=== PATIENT | female | born 1955 | race Caucasian/White ===

== ENCOUNTER 2016-08-20 12:16 | Inpatient (IN) | payer MEDICARE, OTHER ==
[~2016-08-20] VITALS: Ht 157.5 cm; Wt 69.4 kg
[~2016-08-20 12:16] MED LIST: ALPR0.5T5; ASPI-630 PO; ASPI325T8; CARV12.52; CARV3.122 PO; CEFP100T; CRESTOR20 MG; CYCL10TA2 PO; GLYB1TAB14; HYDR12.53 PO; INSU100I13 SQ; Insulin Detemir SQ; LISI-338; MAGN400C; MELO15TA23; METF-620 PO; MONT10TA9; NITR0.4T SL; OMEP20CA9; OMEP40CA5 PO; TRAM50TA
[2016-08-20] MEDS ORDERED: IV NORMAL SALINE 500ML BAG 500 ML IV ONE ×2 (12:30→13:30)
[2016-08-20] MEDS ORDERED: ONDANSETRON PF 4 MG/2 ML VIAL. IV ONE (12:30)
--- NOTE | 2016-08-20 12:34 | PHYS DOC ---
Past Medical History Past Medical History: Arthritis, Diabetes-Type II, Hypertension, Other Additional Past Medical Histor: TACHYCARDIA Past Surgical History: Coronary Bypass Surgery, Hysterectomy, Other Additional Past Surgical Histo: CARDIAC STENT PLACEMENT X4, NECK FUSION, Alcohol Use: None Drug Use: None Adult General HPI HPI nding 60-year-old female with a history of stroke in 2014 with no residual deficit now presents to the emergency department with onset of speech changes and difficulty with word finding yesterday. Patient states her symptoms have improved today however she is still having some difficulty finding words. She has no other focal deficit otherwise and denies new weakness, any change with coordination, problems with gait, or visual changes. Patient states she does not feel ill and has no other complaints. No chest pain or shortness of breath normal bowel and bladder habits Review of Systems Review of Systems Constitutional: Denies fever or chills [] Eyes: Denies change in visual acuity, redness, or eye pain [] HENT: Denies nasal congestion or sore throat [] Respiratory: Denies cough or shortness of breath [] Cardiovascular: No additional information not addressed in HPI [] GI: Denies abdominal pain, nausea, vomiting, bloody stools or diarrhea [] : Denies dysuria or hematuria [] Musculoskeletal: Denies back pain or joint pain [] Integument: Denies rash or skin lesions [] Neurologic: Denies headache, focal weakness or sensory changes [] Endocrine: Denies polyuria or polydipsia [] Current Medications Current Medications Current Medications Medications (Trade) Dose Ordered Sig/Nga Start Time Stop Time Status Last Admin Dose Admin Acetaminophen/ Hydrocodone Bitart (Lortab 5/325) 1 tab 1X ONCE 08/20/16 13:30 08/20/16 13:31 UNV Ondansetron HCl (Zofran) 4 mg 1X ONCE 08/20/16 12:30 08/20/16 12:34 DC 08/20/16 12:34 4 MG Sodium Chloride 1,000 ml @ 120 mls/hr [id number] 08/20/16 12:42 08/21/16 12:41 Allergies Allergies Allergies Coded Allergies Type Severity Reaction Last Updated Verified paroxetine Allergy Intermediate SEIZURE 05/10/13 Yes meperidine Allergy Mild Anxiety 05/10/13 Yes morphine Allergy Mild Nausea and Vomiting 05/10/13 Yes I S O L A T I O N *CONTACT* Allergy Unknown 03/01/14 Yes Physical Exam Physical Exam Well-appearing 60-year-old female with no facial droop alert communicative cooperative and appropriate but having word finding difficulties consistent with a motor aphasia. Patient knows she wants to say but him times has trouble finding words and getting them out. Remainder of her neurologic exam is nonfocal. Normal symmetrical strength sensation and reflexes. No cranial nerve abnormality. Downgoing toes bilaterally. Exam otherwise benign Constitutional: Well developed, well nourished, no acute distress, non-toxic appearance. [] HENT: Normocephalic, atraumatic, bilateral external ears normal, oropharynx moist, no oral exudates, nose normal. [] Eyes: PERRLA, EOMI, conjunctiva normal, no discharge. [] Neck: Normal range of motion, no tenderness, supple, no stridor. [] Cardiovascular:Heart rate regular rhythm, no murmur [] Lungs & Thorax: Bilateral breath sounds clear to auscultation [] Abdomen: Bowel sounds normal, soft, no tenderness, no masses, no pulsatile masses. [] Skin: Warm, dry, no erythema, no rash. [] Back: No tenderness, no CVA tenderness. [] Extremities: No tenderness, no cyanosis, no clubbing, ROM intact, no edema. [] Neurologic: As above Alert and oriented X 3, normal motor function, normal sensory function, no focal deficits noted. [] Psychologic: Affect normal, judgement normal, mood normal. [] Current Patient Data Vital Signs Vital Signs Date Time Temp Pulse Resp B/P (MAP) Pulse Ox O2 Delivery O2 Flow Rate FiO2 08/20/16 13:06 91 20 194/91 (125) 97 Room Air 08/20/16 12:16 98.0 98.0 Lab Values Laboratory Tests Test 08/20/16 12:21 08/20/16 12:22 Glucose (Fingerstick) 221 mg/dL (70-99) H White Blood Count 12.4 x10^3/uL (4.0-11.0) H Red Blood Count 4.21 x10^6/uL (3.50-5.40) Hemoglobin 13.4 g/dL (12.0-15.5) Hematocrit 41.3 % (36.0-47.0) Mean Corpuscular Volume 98 fL (79-100) Mean Corpuscular Hemoglobin 32 pg (25-35) Mean Corpuscular Hemoglobin Concent 33 g/dL (31-37) Red Cell Distribution Width 12.9 % (11.5-14.5) Platelet Count 213 x10^3/uL (140-400) Neutrophils (%) (Auto) 81 % (31-73) H Lymphocytes (%) (Auto) 14 % (24-48) L Monocytes (%) (Auto) 4 % (0-9) Eosinophils (%) (Auto) 1 % (0-3) Basophils (%) (Auto) 1 % (0-3) Neutrophils # (Auto) 10.0 x10^3uL (1.8-7.7) H Lymphocytes # (Auto) 1.7 x10^3/uL (1.0-4.8) Monocytes # (Auto) 0.5 x10^3/uL (0.0-1.1) Eosinophils # (Auto) 0.1 x10^3/uL (0.0-0.7) Basophils # (Auto) 0.1 x10^3/uL (0.0-0.2) Sodium Level 142 mmol/L (136-145) Potassium Level 4.4 mmol/L (3.5-5.1) Chloride Level 102 mmol/L (98-107) Carbon Dioxide Level 30 mmol/L (21-32) Anion Gap 10 (6-14) Blood Urea Nitrogen 22 mg/dL (7-20) H Creatinine 1.0 mg/dL (0.6-1.0) Estimated GFR (Cockcroft-Gault) 56.6 BUN/Creatinine Ratio 22 (6-20) H Glucose Level 231 mg/dL (70-99) H Calcium Level 8.5 mg/dL (8.5-10.1) Total Bilirubin 0.9 mg/dL (0.2-1.0) Aspartate Amino Transferase (AST) 21 U/L (15-37) Alanine Aminotransferase (ALT) 20 U/L (14-59) Alkaline Phosphatase 84 U/L (46-116) Troponin I Quantitative < 0.017 ng/mL (0.000-0.055) Total Protein 7.1 g/dL (6.4-8.2) Albumin 3.7 g/dL (3.4-5.0) Albumin/Globulin Ratio 1.1 (1.0-1.7) Laboratory Tests 08/20/16 12:22 Laboratory Tests 08/20/16 12:22 EKG EKG AG normal sinus rhythm at 82 normal axis no STEMI operative by me [] Radiology/Procedures Radiology/Procedures [] Course & Med Decision Making Course & Med Decision Making Pertinent Labs and Imaging studies reviewed. (See chart for details) Signs and symptoms consistent with mild CVA with speech changes and motor A fascia onset yesterday in a patient with a known history of stroke. She is otherwise stable well appearing with a nonfocal neurologic exam aside from the affirmation speech deficit shows improved per patient but still persists. 4 workup pending. We'll anticipate inpatient admission for full neurologic workup with consultation to Dr. Allan. Results pending [] Dragon Disclaimer Dragon Disclaimer This electronic medical record was generated, in whole or in part, using a voice recognition dictation system. Departure Departure Impression: Primary Impression: Acute CVA (cerebrovascular accident) Additional Impressions: Motor aphasia Prerenal azotemia Disposition: ADMITTED INPATIENT Admitting Physician: Ramírez Andrews Condition: STABLE Referrals: RAMÍREZ ANDREWS MD (PCP) Problem Qualifiers BRISA RUTH MD Aug 20, 2016 12:34
[2016-08-20 12:44] LABS: BASO # 0.1 x10^3/uL (0.0-0.2); BASO % 1 % (0-3); EOS % 1 % (0-3); HEMATOCRIT 41.3 % (36.0-47.0); HEMOGLOBIN 13.4 g/dL (12.0-15.5); LYMPH # 1.7 x10^3/uL (1.0-4.8); LYMPH % 14 % (24-48); MEAN CORPUSCULAR HEMOGLOBIN 32 pg (25-35); MEAN CORPUSCULAR HGB CONC 33 g/dL (31-37); MEAN CORPUSCULAR VOLUME 98 fL (79-100); MONO % 4 % (0-9); NEUT % 81 % (31-73); PLATELET COUNT 213 x10^3/uL (140-400); RED BLOOD COUNT 4.21 x10^6/uL (3.50-5.40); RED CELL DISTRIBUTION WIDTH 12.9 % (11.5-14.5); WHITE BLOOD COUNT 12.4 x10^3/uL (4.0-11.0)
--- NOTE | 2016-08-20 12:47 | RAD ---
CT head 08/20/2016 at 1220 hours Indication: New onset aphasia Comparison: CT head 03/01/2014 Technique: Multiple noncontrast axial CT images of the head were performed from the skull base to the vertex. Findings: There is an area of hypoattenuation the left frontal operculum which is suggestive of encephalomalacia related to prior infarct. There is subtle loss of lee-white matter differentiation involving the left frontal lobe in this region which may suggest an acute/subacute on chronic infarct. Additionally, there is loss of lee-white matter differentiation in the left parietal lobe (series 2, image 19 and 21) compatible with an acute/subacute infarct. No acute hemorrhage is identified. A remote lacunar infarct is noted in the right basal ganglia. There is no mass, mass effect or midline shift. Ventricles, sulci and basal cisterns are normal. Visualized orbits, paranasal sinuses and mastoid air cells are normal. Scalp and calvaria are normal. Impression: 1. Acute/subacute infarct noted in the left parietal region. No acute hemorrhage. 2. Likely acute/subacute infarct superimposed on areas of remote ischemia in the left frontal operculum. Critical findings were discussed with Dr. Rahman at 12:45 PM on 08/20/[address] Buclkey. PQRS Compliance Statement: One or more of the following individualized dose reduction techniques were utilized for this examination: 1. Automated exposure control 2. Adjustment of the mA and/or kV according to patient size 3. Use of iterative reconstruction technique
[2016-08-20 12:54] LABS: CALCIUM 8.5 mg/dL (8.5-10.1); GFR 56.6; POTASSIUM 4.4 mmol/L (3.5-5.1)
[2016-08-20 13:00] LABS: ALBUMIN 3.7 g/dL (3.4-5.0); ALBUMIN/GLOBULIN RATIO 1.1 (1.0-1.7); TOTAL BILIRUBIN 0.9 mg/dL (0.2-1.0); TOTAL PROTEIN 7.1 g/dL (6.4-8.2)
--- NOTE | 2016-08-20 13:12 | RAD ---
Portable chest, 08/20/2016: History: Stroke symptoms Comparison is made to a study from 02/27/2014. There has been a previous median sternotomy. The heart size and pulmonary vascularity are normal. No pulmonary infiltrates are seen. There is no evidence of pleural fluid. IMPRESSION: No acute cardiopulmonary abnormality is detected.
--- NOTE | 2016-08-20 13:15 | EKG ---
[facility] [address] [place] [address] Test Date: 2016-08-20 Test Time: 12:35:42 Pat Name: FERDINAND GUPTA Department: Room: Gender: F Structural Worker: : 1955 Requested By: BRISA RUTH Order Number: [id number] Reading MD: Dee Graham Measurements Intervals [place] Rate: 82 P: -62 GA: 78 QRS: 72 QRSD: 82 T: 18 QT: 356 QTc: 419 Interpretive Statements SINUS RHYTHM NORMAL ECG RI6.01 Compared to ECG 02/28/2014 11:39:18 No significant changes Electronically Signed On 08-25-2016 14:57:04 CDT by Dee Graham
[2016-08-20] MEDS ORDERED: HYDROcodone/APAP 5/325MG 1 TAB TABLET PO ONE (13:30)
[2016-08-20 13:58] LABS: BILIRUBIN,URINE NEGATIVE (NEG); GLUCOSE,URINE NEGATIVE (NEG); NITRITE,URINE NEGATIVE (NEG); PROTEIN,URINE NEGATIVE (NEG-TRACE)
--- NOTE | 2016-08-20 13:58 | ACF ---
Admit Criteria Forms Admit Criteria Forms Admit Criteria Forms NEUROLOGY GRG Clinical Indications for Admission to Inpatient Care (Place ' X' for any and all applicable criteria): Hospital admission is needed for appropriate care of the patient because of 1 or more of the following: [ ]I. Encephalitis [ ]II. Severe MARKET DEVELOPMENT ANALYST infections indicated by 1 or more of the following(1)(2)(3) : [ ]a) Intracranial abscess [ ]b) Spinal abscess or myelitis [ ]c) Tuberculous or other nonbacterial, nonviral MARKET DEVELOPMENT ANALYST infection(8) [ ]III. Vasculitis and 1 or more of the following(14)(15): []a) Altered mental status that is severe or persistent or other acute neurologic change []b) Psychosis []c) Seizure [ ]IV. Status epilepticus or repetitive seizures not controlled with emergent treatment [A] (7)(8) [ ]V. Altered mental status that is severe or persistent [ ]. Transient alteration in consciousness with high-risk etiology; examples include (12)(13): [ ]a) Cardiovascular source [ ]b) Cataplexy [ ]VII. Cerebral aneurysm requiring ANY ONE of the following(14): [ ]a) IV antihypertensives or vasoactive agents [ ]b) Sedation and analgesia for suspected leak [ ]c) Need for external ventricular drainage and cerebral perfusion pressure monitoring [ ]d) Emergent evaluation to determine need for surgical clipping or endovascular coiling by interventional radiology. If surgery is required ( Also use Craniotomy, Supratentorial, for Surgery of Bleeding Intracranial Aneurysm (for bleeding aneurysm) or Craniotomy, Supratentorial (for nonbleeding aneurysm) as appropriate. [X ]VIII. New-onset severe neurologic symptom requiring inpatient care indicated by ANY ONE of the following: [X]a) Aphasia(15) [ ]b) Weakness (grade 3 or less) [ ]c) Paralysis (eg, hemiplegia) [ ]d) Spasticity(16) [ ]e) Dystonia [ ]e) Ataxia(17) [ ]f) Amnesia(18) [ ]g) Involuntary movements(19) [ ]h) Vertigo [ ] Visual loss [ ]i) Other severe neurologic finding (eg, papilledema, mass effect on imaging, myoclonus not treatable at alternative level of care (eg, observation care) [ ]IX. Guillain-[place] syndrome(20) [ ]X. Myasthenia gravis crisis or inpatient monitoring need as indicated by 1 or more of the following(21): [ ]a) Intensive treatment (eg, course of plasmapheresis) with inadequate outpatient situation to monitor patients status [ ]b) Inadequate airway protection [ ]c) Respiratory insufficiency requiring intubation or inpatient. monitoring [ ]d) Progressive dysphagia with failure to thrive [ ]XI. Multiple sclerosis or other acute demyelinating disease requiring inpatient care as indicated by 1 or more of the following (22)(23): [ ]a) Acute severe deterioration requiring inpatient treatment (eg, IV steroids, plasmapheresis, close observation) [ ]b) Acute complication requiring inpatient care (eg, sepsis, severe decubitus, aspiration) [ ]XII.Parkinson disease requiring inpatient care (Also use Optimal Recovery Care Criteria or General Recovery Criteria as appropriate) indicated by 1 or more of the following(25): [ ]a) Infection (eg, aspiration pneumonia) not treatable at alternative level of care [ ]b Dehydration that is severe or persistent [ ]c) Life-threatening agitation or psychotic behavior not treatable on emergency, observation care, or alternative level (eg, residential) basis [ ]d) Severe medication withdrawal effects (eg, freezing, neuroleptic malignant syndrome) not responsive to emergency and observation care treatment ( as appropriate) [ ]e) Other severe manifestation not treatable at alternative level of care [ ]XII. Amyotrophic lateral sclerosis with inpatient care needs as indicated by ANY ONE of the following(26): [ ]a) Acute complications (eg, aspiration pneumonia, sepsis ) requiring inpatient care ( see other optimal Recovery Guideline as appropriate) [ ]b) Dehydration that is severe persistent AND artificial support desired [ ]c) Inadequate airway protection AND artificial support desired [ ]d) Severe ventilatory insufficiency AND artificial support desired [ ]XIII. Myasthenia gravis crisis or inpatient monitoring need as indicated by 1 or more of the following(21): [] a) Inadequate airway protection []b) Respiratory insufficiency requiring intubation or inpatient monitoring []c) Progressive dysphagia with failure to thrive []d) Intensive treatment (e.g., course of plasmapheresis) with inadequate outpatient situation to monitor patients status [ ]XIV. Multiple sclerosis or other acute demyelinating disease requiring inpatient care indicated by 1 or more of the following[C](36)(43)(44)(45)(46): []a) Acute severe deterioration requiring inpatient treatment (eg, IV steroids, plasmapheresis, close observation) []b) Acute complication requiring inpatient care (eg, sepsis, severe decubitus, aspiration) [ ]XV. Intracranial hypertension (e.g., pseudotumor cerebri) requiring inpatient care (e.g., acute visual loss, inadequate oral intake) (47)(48)(49) [ ]XVI. Parkinson disease requiring inpatient care (Also use Optimal Recovery Care Criteria or General Recovery Criteria as appropriate) indicated by 1 or more of the following(25): [] a) Infection (e.g., aspiration pneumonia) not treatable at alternative level of care []b) Volume depletion not responsive to emergency and observation care treatment (as appropriate) []c) Life-threatening agitation or psychotic behavior not treatable on emergency, observation care, or alternative level (e.g., residential) basis []d) Severe medication withdrawal effects (e.g., freezing, neuroleptic malignant syndrome) not responsive to emergency and observation care treatment (as appropriate) []e) Other severe manifestation not treatable at alternative level of care [ ]XVII. Amyotrophic lateral sclerosis with inpatient care needs as indicated by1 or more of the following(42): []a) Acute complications (eg, aspiration pneumonia, sepsis) requiring inpatient care (see other Optimal Recovery Guideline or General Recovery Guideline as appropriate) []b) Dehydration that is severe or persistent AND artificial support desired []c) Inadequate airway protection AND artificial support desired []d) Severe ventilatory insufficiency AND artificial support desired [ ]XVIII. Severe myopathy, neuropathy, or other neuromuscular disease indicated by 1 or more of the following(42)(52)(53)(54): []a ) New-onset severe diffuse weakness (eg, strength 3/5 or less) []b) Severe dysphagia []c) Dyspnea at rest or with minimal exertion (new) []d) Inadequate airway protection []e) Inadequate ventilation indicated by 1 or more of the following : i) Partial pressure of carbon dioxide greater than 44 mm Hg ( 5.9 kPa) (new) ii) Reduced peak expiratory flow rate (new) iii) Vital capacity less than 50% of predicted (less than 15 mL/kg) iv) Peak inspiratory force less negative than -30 cm H2O (- 2942 Pa) [ ]XVII.Complications of congenital or degenerative disease (eg, infection, seizures, dehydration, injury) not responsive to emergency and observation care treatment (as appropriate ) [C](16)(29)(30) [ ]XVIII.Suspected or confirmed nerve or muscle toxic injury, including ANY ONE of the following: [ ]a) Rhabdomyolysis(31) i) Acute renal failure ii) Dehydration that is severe or persistent iii) Altered mental status that is severe or persistent iv) Electrolyte abnormality that remains after emergency or observation level care ( as appropriate) [ ]b) Botulism(32) [ ]c) Other severe toxin-induced sign or symptom [ ]XIX. Neurologic trauma requiring inpatient treatment (medical) indicated by ANY ONE of the following(33)(34): [ ]a) Vital signs or neurologic signs more frequently than every 4 hours [ ]b) Hyperosmolar therapy [ ]c) Respiratory monitoring [ ]d) Intracranial pressure monitoring and treatment [ ]e) Stabilization and immobilization device placement (eg, braces, body jacket) [ ]f) Intubation & mechanical ventilation for airway protection or therapeutic hyperventilation [ ]g) Other treatment or monitoring needed that requires inpatient level of care [ ]XX.Complications of neurologic devices (eg, ventricular shunt, neurostimulator) requiring 1 or more of the following(35)(36): [ ]a) IV antibiotics with monitoring while awaiting culture results [ ]b) Monitoring for hydrocephalus [ ]XXI. Neurology condition symptom, or finding for which emergency and observation care have failed or are not considered appropriate. See General Criteria: Observation Care ISC, General Admission Criteria GRG, or Pediatric General Admission Criteria GRG guideline as appropriate. The original [employer] content created by [employer] has been revised. The portions of the content which have been revised are identified through the use of italic text or in bold, and [facility] has neither reviewed nor approved the modified material. All other unmodified content is copyright [facility] [employer] Please see references footnoted in the original [facility] edition 2016 OBEY HOANG Aug 20, 2016 13:58
[2016-08-20] MEDS ORDERED: ASPIRIN CHEWABLE 81 MG TABLET. PO ONE (14:00)
[2016-08-20 14:07] LABS: BACTERIA,URINE MOD /HPF (0-FEW); RBC,URINE 0 /HPF (0-2); SQUAMOUS EPITHELIAL CELL,UR MANY /LPF; WBC,URINE 20-40 /HPF (0-4); YEAST,URINE PRESENT /HPF
[2016-08-20] MEDS: IV NORMAL SALINE 1000ML BAG 1,000 ML IV SCH ×3 (14:17→22:16)
[2016-08-20 15:30] VITALS: BP 142/89
[2016-08-20] MEDS ORDERED: ONDANSETRON PF 4 MG/2 ML VIAL. IV PRN (15:30)
[2016-08-20] MEDS ORDERED: TRAZ50TA15 PO (15:44)
[2016-08-20] MEDS ORDERED: ATOR40TA59 PO (15:44)
--- NOTE | 2016-08-20 15:55 | PDOC2 ---
NEUROLOGY CONSULT Date of Admission Date of Admission DATE: 08/20/16 TIME: 15:48 Reason for Consult Reason for Consult: Stroke symptoms Referring Physician Referring Physician: Dr. Andrews Source Source: Caregiver, Chart review, Patient History of Present Illness History of Present Illness The patient is a 60-year-old right-handed female who had some trouble speaking starting yesterday. Her mother tells me the patient called her up and sounded confused. The patient was complaining of a yeast infection. Indeed she has been found to have a urinary tract infection. 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 She had no residual. She has been on Plavix ever since. She is feeling better today. She never developed any new focal weakness, numbness, diplopia, or dysphagia. She denies any headache. Past Medical History Cardiovascular: CAD, HTN Pulmonary: Asthma, COPD, Pneumonia GI: GERD ENT: Sincusitis Past Surgical History Past Surgical History: CABG, , Hysterectomy, Other (cervical, residual right arm weakness; cardiac stent, cath; bronch; endoscopy) Family History Family History: CAD Social History Social History , nonsmoker, nondrinker Current Medications Current Medications Current Medications Sodium Chloride 500 ml @ 500 mls/hr 1X ONCE IV Last administered on 12:35; Start 08/20/16 at 12:30; Stop 08/20/16 at 13:29; Status DC Ondansetron HCl (Zofran) 4 mg 1X ONCE IV Last administered on 08/20/16 12:34 ; Start 08/20/16 at 12:30; Stop 08/20/16 at 12:34; Status DC Sodium Chloride 1,000 ml @ 120 mls/hr Q8H20M IV Last administered on 14:17; Start 08/20/16 at 12:42; Stop 08/21/16 at 12:41 Acetaminophen/ Hydrocodone Bitart (Lortab 5/325) 1 tab 1X ONCE PO Last administered on 08/20/16 13:31; Start 08/20/16 at 13:30; Stop 08/20/16 at 13:31 ; Status DC Sodium Chloride 500 ml @ 500 mls/hr 1X ONCE IV Last administered on 13:36; Start 08/20/16 at 13:30; Stop 08/20/16 at 14:29; Status DC Aspirin (Children'S Aspirin) 324 mg 1X ONCE PO Last administered on 08/20/16t 14:16; Start 08/20/16 at 14:00; Stop 08/20/16 at 14:03; Status DC Ondansetron HCl (Zofran) 4 mg PRN Q6HRS PRN IV NAUSEA/VOMITING; Start 08/20/16 at 15:30 Aspirin (Children'S Aspirin) 81 mg DAILY PO ; Start 08/21/16 at 09:00; Status UNV Atorvastatin Calcium (Lipitor) 40 mg HS PO ; Start 08/20/16 at 21:00; Status UNV Carvedilol (Coreg) 3.125 mg BID PO ; Start 08/20/16 at 21:00; Status UNV Hydrochlorothiazide (Microzide) 12.5 mg DAILY PO ; Start 08/21/16 at 09:00; Status UNV Metformin HCl (Glucophage) 1,000 mg BID PO ; Start 08/20/16 at 21:00; Status UNV Nitroglycerin (Nitrostat) 0.4 mg TID SL ; Start 08/20/16 at 21:00; Status UNV Trazodone HCl (Desyrel) 50 mg HS PO ; Start 08/20/16 at 21:00; Status UNV Non-Formulary Medication 25 units HS SQ ; Start 08/20/16 at 21:00; Status UNV Active Scripts Active [Insulin Detemir] 300 UNITS/3 ML Insuln.pen 25 Units SQ HS Reported Trazodone Hcl 50 Mg Tablet 50 Mg PO HS Atorvastatin Calcium 40 Mg Tablet 40 Mg PO HS Aspirin 81 Mg Tab.chew 1 Tab PO DAILY Carvedilol 3.125 Mg Tablet 1 Tab PO BID Nitrostat (Nitroglycerin) 0.4 Mg Tab.subl 1 Tab SL UD Hydrochlorothiazide Capsule (Hydrochlorothiazide) 12.5 Mg Capsule 1 Cap PO DAILY Metformin Hcl 1,000 Mg Tablet 1 Tab PO BID Tramadol Hcl 50 Mg Tablet BID Allergies Allergies: Coded Allergies: paroxetine (Verified Allergy, Intermediate, SEIZURE, 05/10/13) meperidine (Verified Allergy, Mild, Anxiety, 05/10/13) morphine (Verified Allergy, Mild, Nausea and Vomiting, 05/10/13) I S O L A T I O N *CONTACT* (Verified Allergy, Unknown, 03/01/14) mrsa + ROS Review of System Patient denies fevers, chills, weight loss, dyspnea, angina, abdominal pain, change in bowels, or dysuria. 14 point review of systems is negative. Physical Exam Physical Examination PHYSICAL EXAMINATION: Vital signs: see above. General appearance is normal and in no acute distress. HEENT: Normocephalic and nontraumatic. Eyes, nose, ears, and throat are unremarkable. Neck is supple. No lymphadenopathy. No bruits are heard over the carotid artery. No crepitus. NEUROLOGICAL EXAMINATION: Mental Status Examination: Alert. Oriented to time, place, and person. No aphasia. Answers questions and follows commends. Pupils are equal round and reactive to light and accommodation. Extraocular movements are intact. Visual field exam shows no defect on the direct confrontation. No motor or sensory deficits on the facial exam. Uvula in the midline and the soft palate elevated symmetrically. No deviation of the tongue to any direction. Gross hearing is normal. Shoulder shrug normal. Muscle tone is normal. Muscle strength is 5. Deep tendon reflexes are 2+ all around. Plantar reflex is with flexion response bilaterally. Ruymqi-ps-glja test performance is accurate. Tandem walk test is accurate. Alternative movements are accurate. Romberg test is negative. Gait is normal. Sensory exam shows no deficits. No cerebellar signs are elicited. Vitals VITALS Vital Signs Date Time Temp Pulse Resp B/P (MAP) Pulse Ox O2 Delivery O2 Flow Rate FiO2 08/20/16 15:30 97.8 86 18 142/89 (106) 96 Room Air 97.8 Labs Labs Laboratory Tests Test 08/20/16 12:21 08/20/16 12:22 08/20/16 13:45 Glucose (Fingerstick) 221 mg/dL (70-99) White Blood Count 12.4 x10^3/uL (4.0-11.0) Red Blood Count 4.21 x10^6/uL (3.50-5.40) Hemoglobin 13.4 g/dL (12.0-15.5) Hematocrit 41.3 % (36.0-47.0) Mean Corpuscular Volume 98 fL (79-100) Mean Corpuscular Hemoglobin 32 pg (25-35) Mean Corpuscular Hemoglobin Concent 33 g/dL (31-37) Red Cell Distribution Width 12.9 % (11.5-14.5) Platelet Count 213 x10^3/uL (140-400) Neutrophils (%) (Auto) 81 % (31-73) Lymphocytes (%) (Auto) 14 % (24-48) Monocytes (%) (Auto) 4 % (0-9) Eosinophils (%) (Auto) 1 % (0-3) Basophils (%) (Auto) 1 % (0-3) Neutrophils # (Auto) 10.0 x10^3uL (1.8-7.7) Lymphocytes # (Auto) 1.7 x10^3/uL (1.0-4.8) Monocytes # (Auto) 0.5 x10^3/uL (0.0-1.1) Eosinophils # (Auto) 0.1 x10^3/uL (0.0-0.7) Basophils # (Auto) 0.1 x10^3/uL (0.0-0.2) Sodium Level 142 mmol/L (136-145) Potassium Level 4.4 mmol/L (3.5-5.1) Chloride Level 102 mmol/L (98-107) Carbon Dioxide Level 30 mmol/L (21-32) Anion Gap 10 (6-14) Blood Urea Nitrogen 22 mg/dL (7-20) Creatinine 1.0 mg/dL (0.6-1.0) Estimated GFR (Cockcroft-Gault) 56.6 BUN/Creatinine Ratio 22 (6-20) Glucose Level 231 mg/dL (70-99) Calcium Level 8.5 mg/dL (8.5-10.1) Total Bilirubin 0.9 mg/dL (0.2-1.0) Aspartate Amino Transf (AST/SGOT) 21 U/L (15-37) Alanine Aminotransferase (ALT/SGPT) 20 U/L (14-59) Alkaline Phosphatase 84 U/L (46-116) Troponin I Quantitative < 0.017 ng/mL (0.000-0.055) Total Protein 7.1 g/dL (6.4-8.2) Albumin 3.7 g/dL (3.4-5.0) Albumin/Globulin Ratio 1.1 (1.0-1.7) Urine Collection Type Unknown Urine Color Yellow Urine Clarity Hazy Urine pH 6.0 Urine Specific [place] 1.020 Urine Protein Negative mg/dL (NEG-TRACE) Urine Glucose (UA) Negative mg/dL (NEG) Urine Ketones (Stick) Negative mg/dL (NEG) Urine Blood Negative (NEG) Urine Nitrite Negative (NEG) Urine Bilirubin Negative (NEG) Urine Urobilinogen Dipstick 1.0 mg/dL (0.2 mg/dL) Urine Leukocyte Esterase Large (NEG) Urine RBC 0 /HPF (0-2) Urine WBC 20-40 /HPF (0-4) Urine Squamous Epithelial Cells Many /LPF Urine Bacteria Mod /HPF (0-FEW) Urine Mucus Marked /LPF Urine Yeast Present /HPF Laboratory Tests Test 08/20/16 12:21 08/20/16 12:22 08/20/16 13:45 Glucose (Fingerstick) 221 mg/dL (70-99) White Blood Count 12.4 x10^3/uL (4.0-11.0) Red Blood Count 4.21 x10^6/uL (3.50-5.40) Hemoglobin 13.4 g/dL (12.0-15.5) Hematocrit 41.3 % (36.0-47.0) Mean Corpuscular Volume 98 fL (79-100) Mean Corpuscular Hemoglobin 32 pg (25-35) Mean Corpuscular Hemoglobin Concent 33 g/dL (31-37) Red Cell Distribution Width 12.9 % (11.5-14.5) Platelet Count 213 x10^3/uL (140-400) Neutrophils (%) (Auto) 81 % (31-73) Lymphocytes (%) (Auto) 14 % (24-48) Monocytes (%) (Auto) 4 % (0-9) Eosinophils (%) (Auto) 1 % (0-3) Basophils (%) (Auto) 1 % (0-3) Neutrophils # (Auto) 10.0 x10^3uL (1.8-7.7) Lymphocytes # (Auto) 1.7 x10^3/uL (1.0-4.8) Monocytes # (Auto) 0.5 x10^3/uL (0.0-1.1) Eosinophils # (Auto) 0.1 x10^3/uL (0.0-0.7) Basophils # (Auto) 0.1 x10^3/uL (0.0-0.2) Sodium Level 142 mmol/L (136-145) Potassium Level 4.4 mmol/L (3.5-5.1) Chloride Level 102 mmol/L (98-107) Carbon Dioxide Level 30 mmol/L (21-32) Anion Gap 10 (6-14) Blood Urea Nitrogen 22 mg/dL (7-20) Creatinine 1.0 mg/dL (0.6-1.0) Estimated GFR (Cockcroft-Gault) 56.6 BUN/Creatinine Ratio 22 (6-20) Glucose Level 231 mg/dL (70-99) Calcium Level 8.5 mg/dL (8.5-10.1) Total Bilirubin 0.9 mg/dL (0.2-1.0) Aspartate Amino Transf (AST/SGOT) 21 U/L (15-37) Alanine Aminotransferase (ALT/SGPT) 20 U/L (14-59) Alkaline Phosphatase 84 U/L (46-116) Troponin I Quantitative < 0.017 ng/mL (0.000-0.055) Total Protein 7.1 g/dL (6.4-8.2) Albumin 3.7 g/dL (3.4-5.0) Albumin/Globulin Ratio 1.1 (1.0-1.7) Urine Collection Type Unknown Urine Color Yellow Urine Clarity Hazy Urine pH 6.0 Urine Specific [place] 1.020 Urine Protein Negative mg/dL (NEG-TRACE) Urine Glucose (UA) Negative mg/dL (NEG) Urine Ketones (Stick) Negative mg/dL (NEG) Urine Blood Negative (NEG) Urine Nitrite Negative (NEG) Urine Bilirubin Negative (NEG) Urine Urobilinogen Dipstick 1.0 mg/dL (0.2 mg/dL) Urine Leukocyte Esterase Large (NEG) Urine RBC 0 /HPF (0-2) Urine WBC 20-40 /HPF (0-4) Urine Squamous Epithelial Cells Many /LPF Urine Bacteria Mod /HPF (0-FEW) Urine Mucus Marked /LPF Urine Yeast Present /HPF Images Images CT head: Findings: There is an area of hypoattenuation the left frontal operculum which is suggestive of encephalomalacia related to prior infarct. There is subtle loss of lee-white matter differentiation involving the left frontal lobe in this region which may suggest an acute/subacute on chronic infarct. Additionally, there is loss of lee-white matter differentiation in the left parietal lobe (series 2, image 19 and 21) compatible with an acute/subacute infarct. No acute hemorrhage is identified. A remote lacunar infarct is noted in the right basal ganglia. There is no mass, mass effect or midline shift. Ventricles, sulci and basal cisterns are normal. Visualized orbits, paranasal sinuses and mastoid air cells are normal. Scalp and calvaria are normal. Impression: 1. Acute/subacute infarct noted in the left parietal region. No acute hemorrhage. 2. Likely acute/subacute infarct superimposed on areas of remote ischemia in the left frontal operculum. Assessment/Plan Assessment/Plan Impression: Possible new stroke, but her bedside exam is nonfocal and I wonder if she just had some cognitive symptoms related to her urinary tract infection. Recommendations: Brain MRI Further studies depending on the results of the study. Continue Plavix Rehabilitation screening I discussed my findings with the patient and her mother. Thank you for letting me help with the patient's care. AUGUSTUS KRAFT MD Aug 20, 2016 15:55
[2016-08-20] MEDS ORDERED: ACETAMINOPHEN 325 MG TABLET. PO PRN (16:00)
[2016-08-20] MEDS ORDERED: ENOXAPARIN 40 MG/0.4 ML SYRINGE. SQ SCH (16:00)
[2016-08-20] MEDS: ASPIRIN CHEWABLE 81 MG TABLET. PO SCH (16:00)
[2016-08-20] MEDS ORDERED: ACETAMINOPHEN 650 MG SUPP.RECT. PR PRN (16:00)
[2016-08-20] MEDS ORDERED: LABETALOL 20 MG/4 ML DISP.SYRIN. IV PRN (16:00)
[2016-08-20] MEDS ORDERED: 0.9 % SODIUM CHLORIDE 10 ML DISP.SYRIN. IV PRN (16:00)
[2016-08-20] MEDS ORDERED: PNEUMOCOCCAL VAX SCREEN BY RX. MC ONE (16:45)
[2016-08-20] MEDS: CLOPIDOGREL BISULFATE 75 MG TABLET PO SCH (17:27)
[2016-08-20] MEDS: hydroCHLOROthiazide 12.5 MG CAPSULE PO SCH (17:27)
[2016-08-20] MEDS: CARVEDILOL 3.125 MG TABLET. PO SCH (17:28)
[2016-08-20] MEDS ORDERED: PNEUMOC CONJ VACC 23-VALENT 0.5 ML VIAL. VAX IM ONE (19:00)
[2016-08-20] MEDS: ATORVASTATIN CALCIUM 40 MG TABLET. PO SCH (20:05)
[2016-08-20] MEDS ORDERED: NITROGLYCERIN SUBLINGUAL 0.4 MG BOTTLE OF 25. SL PRN (21:00)
[2016-08-20 21:30] VITALS: BP 178/82
[2016-08-20] MEDS: traZODone 50 MG TABLET. PO SCH (22:11)
[2016-08-20] MEDS: INSULIN DETEMIR 300 UNITS/3 ML INSULN.PEN. SQ SCH (22:15)
[2016-08-20 23:05] VITALS: BP 152/92
[2016-08-20] MEDS: traMADol 50 MG TABLET PO PRN (23:34)
[2016-08-21] MEDS: IV NORMAL SALINE 1000ML BAG 1,000 ML IV SCH ×2 (01:55→05:22)
[2016-08-21 03:05] VITALS: BP 123/79
[2016-08-21 05:05] LABS: CHOLESTEROL/HDL RATIO 2.6
[2016-08-21 07:15] VITALS: BP 152/86
[2016-08-21] MEDS: CLOPIDOGREL BISULFATE 75 MG TABLET PO SCH (08:39)
[2016-08-21] MEDS: hydroCHLOROthiazide 12.5 MG CAPSULE PO SCH (08:39)
[2016-08-21] MEDS: CARVEDILOL 3.125 MG TABLET. PO SCH ×2 (08:40→17:38)
[2016-08-21] MEDS: ASPIRIN CHEWABLE 81 MG TABLET. PO SCH (08:43)
--- NOTE | 2016-08-21 08:44 | RAD ---
MRI of the brain without contrast 08/20/2016 Clinical History: Slurred speech with syncopal episodes and generalized weakness. History of previous CVA. Technique: Unenhanced T1-weighted sagittal and axial, T2-weighted axial and coronal and FLAIR, gradient echo and diffusion-weighted axial images of the brain were obtained. Findings: Comparison study is dated 03/01/2014. There is mild generalized parenchymal atrophy. Patchy, confluent and multiple small focal areas of increased signal intensity are seen within the periventricular and subcortical white matter of both cerebral hemispheres on the FLAIR and T2-weighted images consistent with areas of small vessel ischemic disease. Areas of encephalomalacia are seen involving the left temporal lobe and left parietal occipital lobe. No acute parenchymal abnormality is seen. No extra-axial fluid collection is seen. There is no MRI evidence of acute ischemia/infarction. The paranasal sinuses are essentially clear. There are minimal bilateral mastoid effusions. Normal flow voids are seen within the major vascular structures surrounding the brain parenchyma. Impression: No acute parenchymal abnormality is seen. Electronically signed by: Derick Franks MD (08/21/2016 8:41 AM) [id number]
--- NOTE | 2016-08-21 09:00 | PDOC1 ---
History and Physical Date of Admission Date of Admission DATE: 08/20/16 TIME: 08:58 History of Present Illness History of Present Illness weakness Past Medical History Cardiovascular: CAD, HTN Pulmonary: Asthma, COPD, Pneumonia GI: GERD ENT: Sincusitis Past Surgical History Past Surgical History: CABG, , Hysterectomy, Other (cervical, residual right arm weakness; cardiac stent, cath; bronch; endoscopy) Social History ALCOHOL: none Current Problem List Problem List Problems Medical Problems: (1) Acute CVA (cerebrovascular accident) Status: Acute (2) Motor aphasia Status: Acute (3) Prerenal azotemia Status: Acute Problems: Current Medications Current Medications Current Medications Sodium Chloride 500 ml @ 500 mls/hr 1X ONCE IV Last administered on 12:35; Start 08/20/16 at 12:30; Stop 08/20/16 at 13:29; Status DC Ondansetron HCl (Zofran) 4 mg 1X ONCE IV Last administered on 08/20/16 12:34 ; Start 08/20/16 at 12:30; Stop 08/20/16 at 12:34; Status DC Sodium Chloride 1,000 ml @ 120 mls/hr Q8H20M IV Last administered on 22:16; Start 08/20/16 at 12:42; Stop 08/21/16 at 12:41 Acetaminophen/ Hydrocodone Bitart (Lortab 5/325) 1 tab 1X ONCE PO Last administered on 08/20/16 13:31; Start 08/20/16 at 13:30; Stop 08/20/16 at 13:31 ; Status DC Sodium Chloride 500 ml @ 500 mls/hr 1X ONCE IV Last administered on 13:36; Start 08/20/16 at 13:30; Stop 08/20/16 at 14:29; Status DC Aspirin (Children'S Aspirin) 324 mg 1X ONCE PO Last administered on 08/20/16 14:16; Start 08/20/16 at 14:00; Stop 08/20/16 at 14:03; Status DC Ondansetron HCl (Zofran) 4 mg PRN Q6HRS PRN IV NAUSEA/VOMITING; Start 08/20/16 at 15:30 Aspirin (Children'S Aspirin) 81 mg DAILY PO Last administered on 08/21/16 08: 43; Start 08/20/16 at 16:00 Atorvastatin Calcium (Lipitor) 40 mg HS PO Last administered on 08/20/16 20:05 ; Start 08/20/16 at 21:00 Carvedilol (Coreg) 3.125 mg BIDWMEALS PO Last administered on 08/21/16 08:40; Start 08/20/16 at 17:00 Hydrochlorothiazide (Microzide) 12.5 mg DAILY PO Last administered on 08:39; Start 08/20/16 at 16:00 Metformin HCl (Glucophage) 1,000 mg BIDWMEALS PO Last administered on 08:39; Start 08/20/16 at 17:00 Nitroglycerin (Nitrostat) 0.4 mg PRN Q5MIN PRN SL CHEST PAIN; Start 08/20/16 at 21:00; Stop 08/21/16 at 08:55; Status DC Trazodone HCl (Desyrel) 50 mg HS PO Last administered on 08/20/16 22:11; Start 08/20/16 at 21:00 Insulin Detemir (Levemir) 25 units QHS SQ Last administered on 08/20/16 22:15 ; Start 08/20/16 at 21:00 Sodium Chloride (Normal Saline Flush) 3 ml QSHIFT PRN IV AFTER MEDS AND BLOOD DRAWS; Start 08/20/16 at 16:00 Sodium Chloride 1,000 ml @ 100 mls/hr Q10H IV Last administered on 08/20/16 17:27; Start 08/20/16 at 15:55; Stop 08/21/16 at 08:55; Status DC Clopidogrel Bisulfate (Plavix) 75 mg DAILYWBKFT PO Last administered on 08:39; Start 08/20/16 at 17:00 Labetalol HCl (Normodyne) 10 mg PRN Q10MIN PRN IV HYPERTENSION, SEE COMMENTS; Start 08/20/16 at 16:00; Stop 08/21/16 at 08:55; Status DC Acetaminophen (Tylenol) 650 mg PRN Q6HRS PRN PO FEVER; Start 08/20/16 at 16:00 Acetaminophen (Acetaminophen Supp) 650 mg PRN Q6HRS PRN VA FEVER; Start at 16:00; Stop 08/21/16 at 08:55; Status DC Enoxaparin Sodium (Lovenox 40mg Syringe) 40 mg Q24H SQ Last administered on 17:28; Start 08/20/16 at 16:00; Stop 08/21/16 at 08:55; Status DC Pneumococcal Polyvalent Vaccine (Do NOT chart on this placeholder) 1 each 1X ONCE MC ; Start 08/20/16 at 16:45; Stop 08/20/16 at 16:46; Status UNV Pneumococcal Polyvalent Vaccine (Pneumovax 23) 0.5 ml ONCE ONCE VAX IM Last administered on 08/20/16 20:04; Start 08/20/16 at 19:00; Stop 08/20/16 at 19:01 ; Status DC Tramadol HCl (Ultram) 50 mg PRN BID PRN PO MODERATE PAIN Last administered on 23:34; Start 08/20/16 at 23:00 Ceftriaxone Sodium 1 gm/ Sodium Chloride 50 ml @ 100 mls/hr 1X ONCE IV ; Start 08/21/16 at 09:00; Stop 08/21/16 at 09:29; Status UNV Active Scripts Active [Insulin Detemir] 300 UNITS/3 ML Insuln.pen 25 Units SQ HS Reported Trazodone Hcl 50 Mg Tablet 50 Mg PO HS Atorvastatin Calcium 40 Mg Tablet 40 Mg PO HS Aspirin 81 Mg Tab.chew 1 Tab PO DAILY Carvedilol 3.125 Mg Tablet 1 Tab PO BID Nitrostat (Nitroglycerin) 0.4 Mg Tab.subl 1 Tab SL UD Hydrochlorothiazide Capsule (Hydrochlorothiazide) 12.5 Mg Capsule 1 Cap PO DAILY Metformin Hcl 1,000 Mg Tablet 1 Tab PO BID Tramadol Hcl 50 Mg Tablet BID Allergies Allergies: Coded Allergies: paroxetine (Verified Allergy, Intermediate, SEIZURE, 05/10/13) meperidine (Verified Allergy, Mild, Anxiety, 05/10/13) morphine (Verified Allergy, Mild, Nausea and Vomiting, 05/10/13) I S O L A T I O N *CONTACT* (Verified Allergy, Unknown, 03/01/14) mrsa + Vitals Vitals Vital Signs Date Time Temp Pulse Resp B/P (MAP) Pulse Ox O2 Delivery O2 Flow Rate FiO2 08/21/16 08:40 75 152/86 08/21/16 07:15 97.9 18 96 Room Air 97.9 Labs Labs Laboratory Tests Test 08/20/16 12:21 08/20/16 12:22 08/20/16 13:45 08/20/16 15:57 Glucose (Fingerstick) 221 mg/dL (70-99) White Blood Count 12.4 x10^3/uL (4.0-11.0) Red Blood Count 4.21 x10^6/uL (3.50-5.40) Hemoglobin 13.4 g/dL (12.0-15.5) Hematocrit 41.3 % (36.0-47.0) Mean Corpuscular Volume 98 fL (79-100) Mean Corpuscular Hemoglobin 32 pg (25-35) Mean Corpuscular Hemoglobin Concent 33 g/dL (31-37) Red Cell Distribution Width 12.9 % (11.5-14.5) Platelet Count 213 x10^3/uL (140-400) Neutrophils (%) (Auto) 81 % (31-73) Lymphocytes (%) (Auto) 14 % (24-48) Monocytes (%) (Auto) 4 % (0-9) Eosinophils (%) (Auto) 1 % (0-3) Basophils (%) (Auto) 1 % (0-3) Neutrophils # (Auto) 10.0 x10^3uL (1.8-7.7) Lymphocytes # (Auto) 1.7 x10^3/uL (1.0-4.8) Monocytes # (Auto) 0.5 x10^3/uL (0.0-1.1) Eosinophils # (Auto) 0.1 x10^3/uL (0.0-0.7) Basophils # (Auto) 0.1 x10^3/uL (0.0-0.2) Sodium Level 142 mmol/L (136-145) Potassium Level 4.4 mmol/L (3.5-5.1) Chloride Level 102 mmol/L (98-107) Carbon Dioxide Level 30 mmol/L (21-32) Anion Gap 10 (6-14) Blood Urea Nitrogen 22 mg/dL (7-20) Creatinine 1.0 mg/dL (0.6-1.0) Estimated GFR (Cockcroft-Gault) 56.6 BUN/Creatinine Ratio 22 (6-20) Glucose Level 231 mg/dL (70-99) Calcium Level 8.5 mg/dL (8.5-10.1) Total Bilirubin 0.9 mg/dL (0.2-1.0) Aspartate Amino Transf (AST/SGOT) 21 U/L (15-37) Alanine Aminotransferase (ALT/SGPT) 20 U/L (14-59) Alkaline Phosphatase 84 U/L (46-116) Troponin I Quantitative < 0.017 ng/mL (0.000-0.055) Total Protein 7.1 g/dL (6.4-8.2) Albumin 3.7 g/dL (3.4-5.0) Albumin/Globulin Ratio 1.1 (1.0-1.7) Urine Collection Type Unknown Urine Color Yellow Urine Clarity Hazy Urine pH 6.0 Urine Specific [place] 1.020 Urine Protein Negative mg/dL (NEG-TRACE) Urine Glucose (UA) Negative mg/dL (NEG) Urine Ketones (Stick) Negative mg/dL (NEG) Urine Blood Negative (NEG) Urine Nitrite Negative (NEG) Urine Bilirubin Negative (NEG) Urine Urobilinogen Dipstick 1.0 mg/dL (0.2 mg/dL) Urine Leukocyte Esterase Large (NEG) Urine RBC 0 /HPF (0-2) Urine WBC 20-40 /HPF (0-4) Urine Squamous Epithelial Cells Many /LPF Urine Bacteria Mod /HPF (0-FEW) Urine Mucus Marked /LPF Urine Yeast Present /HPF Nasal Screen MRSA (PCR) Negative (Negative) Test 08/20/16 16:30 08/20/16 21:37 08/21/16 03:21 08/21/16 07:23 Glucose (Fingerstick) 159 mg/dL (70-99) 152 mg/dL (70-99) 83 mg/dL (70-99) Triglycerides Level 136 mg/dL (0-150) Cholesterol Level 109 mg/dL (0-200) LDL Cholesterol, Calculated 40 mg/dL (0-100) VLDL Cholesterol, Calculated 27 mg/dL (0-40) Non-HDL Cholesterol Calculated 67 mg/dL (0-129) HDL Cholesterol 42 mg/dL (40-60) Cholesterol/HDL Ratio 2.6 Laboratory Tests Test 08/20/16 12:21 08/20/16 12:22 08/20/16 13:45 08/20/16 15:57 Glucose (Fingerstick) 221 mg/dL (70-99) White Blood Count 12.4 x10^3/uL (4.0-11.0) Red Blood Count 4.21 x10^6/uL (3.50-5.40) Hemoglobin 13.4 g/dL (12.0-15.5) Hematocrit 41.3 % (36.0-47.0) Mean Corpuscular Volume 98 fL (79-100) Mean Corpuscular Hemoglobin 32 pg (25-35) Mean Corpuscular Hemoglobin Concent 33 g/dL (31-37) Red Cell Distribution Width 12.9 % (11.5-14.5) Platelet Count 213 x10^3/uL (140-400) Neutrophils (%) (Auto) 81 % (31-73) Lymphocytes (%) (Auto) 14 % (24-48) Monocytes (%) (Auto) 4 % (0-9) Eosinophils (%) (Auto) 1 % (0-3) Basophils (%) (Auto) 1 % (0-3) Neutrophils # (Auto) 10.0 x10^3uL (1.8-7.7) Lymphocytes # (Auto) 1.7 x10^3/uL (1.0-4.8) Monocytes # (Auto) 0.5 x10^3/uL (0.0-1.1) Eosinophils # (Auto) 0.1 x10^3/uL (0.0-0.7) Basophils # (Auto) 0.1 x10^3/uL (0.0-0.2) Sodium Level 142 mmol/L (136-145) Potassium Level 4.4 mmol/L (3.5-5.1) Chloride Level 102 mmol/L (98-107) Carbon Dioxide Level 30 mmol/L (21-32) Anion Gap 10 (6-14) Blood Urea Nitrogen 22 mg/dL (7-20) Creatinine 1.0 mg/dL (0.6-1.0) Estimated GFR (Cockcroft-Gault) 56.6 BUN/Creatinine Ratio 22 (6-20) Glucose Level 231 mg/dL (70-99) Calcium Level 8.5 mg/dL (8.5-10.1) Total Bilirubin 0.9 mg/dL (0.2-1.0) Aspartate Amino Transf (AST/SGOT) 21 U/L (15-37) Alanine Aminotransferase (ALT/SGPT) 20 U/L (14-59) Alkaline Phosphatase 84 U/L (46-116) Troponin I Quantitative < 0.017 ng/mL (0.000-0.055) Total Protein 7.1 g/dL (6.4-8.2) Albumin 3.7 g/dL (3.4-5.0) Albumin/Globulin Ratio 1.1 (1.0-1.7) Urine Collection Type Unknown Urine Color Yellow Urine Clarity Hazy Urine pH 6.0 Urine Specific [place] 1.020 Urine Protein Negative mg/dL (NEG-TRACE) Urine Glucose (UA) Negative mg/dL (NEG) Urine Ketones (Stick) Negative mg/dL (NEG) Urine Blood Negative (NEG) Urine Nitrite Negative (NEG) Urine Bilirubin Negative (NEG) Urine Urobilinogen Dipstick 1.0 mg/dL (0.2 mg/dL) Urine Leukocyte Esterase Large (NEG) Urine RBC 0 /HPF (0-2) Urine WBC 20-40 /HPF (0-4) Urine Squamous Epithelial Cells Many /LPF Urine Bacteria Mod /HPF (0-FEW) Urine Mucus Marked /LPF Urine Yeast Present /HPF Nasal Screen MRSA (PCR) Negative (Negative) Test 08/20/16 16:30 08/20/16 21:37 08/21/16 03:21 08/21/16 07:23 Glucose (Fingerstick) 159 mg/dL (70-99) 152 mg/dL (70-99) 83 mg/dL (70-99) Triglycerides Level 136 mg/dL (0-150) Cholesterol Level 109 mg/dL (0-200) LDL Cholesterol, Calculated 40 mg/dL (0-100) VLDL Cholesterol, Calculated 27 mg/dL (0-40) Non-HDL Cholesterol Calculated 67 mg/dL (0-129) HDL Cholesterol 42 mg/dL (40-60) Cholesterol/HDL Ratio 2.6 VTE Prophylaxis Ordered VTE Prophylaxis Devices: No VTE Pharmacological Prophylaxi: Yes Assessment/Plan Assessment/Plan nonfocal weakness, labs ok but + UTI, will add rocephin, mri head ok, she wishes to stay another day- will dc iv saline, follow AMINAH WALKER MD Aug 21, 2016 09:00
--- NOTE | 2016-08-21 10:04 | PDOC ---
PROGRESS NOTES Assessment Problems Medical Problems: (1) Acute CVA (cerebrovascular accident) Status: Acute (2) Motor aphasia Status: Acute (3) Prerenal azotemia Status: Acute Stroke symptoms, but more likely cognitive symptoms related to her urinary tract infection. Brain MRI negative for new stroke Plan No further studies needed as brain MRI is normal and she is at her baseline Continue Plavix, turns out she was not on it, but rather aspirin. Discontinue aspirin Rehabilitation Antibiotics for urinary tract infection Discussed with Dr. Andrews Subjective No complaints, feels better, but still a little "off." Objective Vital Signs Date Time Temp Pulse Resp B/P (MAP) Pulse Ox O2 Delivery O2 Flow Rate FiO2 08/21/16 08:40 75 152/86 08/21/16 07:15 97.9 18 96 Room Air 97.9 Intake and Output 08/21/16 07:00 Intake Total 1800 ml Output Total 550 ml Balance 1250 ml Intake Oral 800 ml IV Total 1000 ml Output Urine Total 550 ml # Voids 2 PHYSICAL EXAM Alert. Oriented to time, place and person. PERRL. EOMI. CN: no focal findings. Muscle tone: normal. Muscle strength: 5/5 DTR: 2+ Plantar reflex: flexor Gait: normal. Sensory exam: no abnormal findings. No cerebellar signs elicited. Review of Relevant I have reviewed the following items elma (where applicable) has been applied. Labs Laboratory Tests Test 08/20/16 12:21 08/20/16 12:22 08/20/16 13:45 08/20/16 15:57 Glucose (Fingerstick) 221 mg/dL (70-99) White Blood Count 12.4 x10^3/uL (4.0-11.0) Red Blood Count 4.21 x10^6/uL (3.50-5.40) Hemoglobin 13.4 g/dL (12.0-15.5) Hematocrit 41.3 % (36.0-47.0) Mean Corpuscular Volume 98 fL (79-100) Mean Corpuscular Hemoglobin 32 pg (25-35) Mean Corpuscular Hemoglobin Concent 33 g/dL (31-37) Red Cell Distribution Width 12.9 % (11.5-14.5) Platelet Count 213 x10^3/uL (140-400) Neutrophils (%) (Auto) 81 % (31-73) Lymphocytes (%) (Auto) 14 % (24-48) Monocytes (%) (Auto) 4 % (0-9) Eosinophils (%) (Auto) 1 % (0-3) Basophils (%) (Auto) 1 % (0-3) Neutrophils # (Auto) 10.0 x10^3uL (1.8-7.7) Lymphocytes # (Auto) 1.7 x10^3/uL (1.0-4.8) Monocytes # (Auto) 0.5 x10^3/uL (0.0-1.1) Eosinophils # (Auto) 0.1 x10^3/uL (0.0-0.7) Basophils # (Auto) 0.1 x10^3/uL (0.0-0.2) Sodium Level 142 mmol/L (136-145) Potassium Level 4.4 mmol/L (3.5-5.1) Chloride Level 102 mmol/L (98-107) Carbon Dioxide Level 30 mmol/L (21-32) Anion Gap 10 (6-14) Blood Urea Nitrogen 22 mg/dL (7-20) Creatinine 1.0 mg/dL (0.6-1.0) Estimated GFR (Cockcroft-Gault) 56.6 BUN/Creatinine Ratio 22 (6-20) Glucose Level 231 mg/dL (70-99) Calcium Level 8.5 mg/dL (8.5-10.1) Total Bilirubin 0.9 mg/dL (0.2-1.0) Aspartate Amino Transf (AST/SGOT) 21 U/L (15-37) Alanine Aminotransferase (ALT/SGPT) 20 U/L (14-59) Alkaline Phosphatase 84 U/L (46-116) Troponin I Quantitative < 0.017 ng/mL (0.000-0.055) Total Protein 7.1 g/dL (6.4-8.2) Albumin 3.7 g/dL (3.4-5.0) Albumin/Globulin Ratio 1.1 (1.0-1.7) Urine Collection Type Unknown Urine Color Yellow Urine Clarity Hazy Urine pH 6.0 Urine Specific [place] 1.020 Urine Protein Negative mg/dL (NEG-TRACE) Urine Glucose (UA) Negative mg/dL (NEG) Urine Ketones (Stick) Negative mg/dL (NEG) Urine Blood Negative (NEG) Urine Nitrite Negative (NEG) Urine Bilirubin Negative (NEG) Urine Urobilinogen Dipstick 1.0 mg/dL (0.2 mg/dL) Urine Leukocyte Esterase Large (NEG) Urine RBC 0 /HPF (0-2) Urine WBC 20-40 /HPF (0-4) Urine Squamous Epithelial Cells Many /LPF Urine Bacteria Mod /HPF (0-FEW) Urine Mucus Marked /LPF Urine Yeast Present /HPF Nasal Screen MRSA (PCR) Negative (Negative) Test 08/20/16 16:30 08/20/16 21:37 08/21/16 03:21 08/21/16 07:23 Glucose (Fingerstick) 159 mg/dL (70-99) 152 mg/dL (70-99) 83 mg/dL (70-99) Triglycerides Level 136 mg/dL (0-150) Cholesterol Level 109 mg/dL (0-200) LDL Cholesterol, Calculated 40 mg/dL (0-100) VLDL Cholesterol, Calculated 27 mg/dL (0-40) Non-HDL Cholesterol Calculated 67 mg/dL (0-129) HDL Cholesterol 42 mg/dL (40-60) Cholesterol/HDL Ratio 2.6 Laboratory Tests Test 08/20/16 12:21 08/20/16 12:22 08/20/16 13:45 08/20/16 15:57 Glucose (Fingerstick) 221 mg/dL (70-99) White Blood Count 12.4 x10^3/uL (4.0-11.0) Red Blood Count 4.21 x10^6/uL (3.50-5.40) Hemoglobin 13.4 g/dL (12.0-15.5) Hematocrit 41.3 % (36.0-47.0) Mean Corpuscular Volume 98 fL (79-100) Mean Corpuscular Hemoglobin 32 pg (25-35) Mean Corpuscular Hemoglobin Concent 33 g/dL (31-37) Red Cell Distribution Width 12.9 % (11.5-14.5) Platelet Count 213 x10^3/uL (140-400) Neutrophils (%) (Auto) 81 % (31-73) Lymphocytes (%) (Auto) 14 % (24-48) Monocytes (%) (Auto) 4 % (0-9) Eosinophils (%) (Auto) 1 % (0-3) Basophils (%) (Auto) 1 % (0-3) Neutrophils # (Auto) 10.0 x10^3uL (1.8-7.7) Lymphocytes # (Auto) 1.7 x10^3/uL (1.0-4.8) Monocytes # (Auto) 0.5 x10^3/uL (0.0-1.1) Eosinophils # (Auto) 0.1 x10^3/uL (0.0-0.7) Basophils # (Auto) 0.1 x10^3/uL (0.0-0.2) Sodium Level 142 mmol/L (136-145) Potassium Level 4.4 mmol/L (3.5-5.1) Chloride Level 102 mmol/L (98-107) Carbon Dioxide Level 30 mmol/L (21-32) Anion Gap 10 (6-14) Blood Urea Nitrogen 22 mg/dL (7-20) Creatinine 1.0 mg/dL (0.6-1.0) Estimated GFR (Cockcroft-Gault) 56.6 BUN/Creatinine Ratio 22 (6-20) Glucose Level 231 mg/dL (70-99) Calcium Level 8.5 mg/dL (8.5-10.1) Total Bilirubin 0.9 mg/dL (0.2-1.0) Aspartate Amino Transf (AST/SGOT) 21 U/L (15-37) Alanine Aminotransferase (ALT/SGPT) 20 U/L (14-59) Alkaline Phosphatase 84 U/L (46-116) Troponin I Quantitative < 0.017 ng/mL (0.000-0.055) Total Protein 7.1 g/dL (6.4-8.2) Albumin 3.7 g/dL (3.4-5.0) Albumin/Globulin Ratio 1.1 (1.0-1.7) Urine Collection Type Unknown Urine Color Yellow Urine Clarity Hazy Urine pH 6.0 Urine Specific [place] 1.020 Urine Protein Negative mg/dL (NEG-TRACE) Urine Glucose (UA) Negative mg/dL (NEG) Urine Ketones (Stick) Negative mg/dL (NEG) Urine Blood Negative (NEG) Urine Nitrite Negative (NEG) Urine Bilirubin Negative (NEG) Urine Urobilinogen Dipstick 1.0 mg/dL (0.2 mg/dL) Urine Leukocyte Esterase Large (NEG) Urine RBC 0 /HPF (0-2) Urine WBC 20-40 /HPF (0-4) Urine Squamous Epithelial Cells Many /LPF Urine Bacteria Mod /HPF (0-FEW) Urine Mucus Marked /LPF Urine Yeast Present /HPF Nasal Screen MRSA (PCR) Negative (Negative) Test 08/20/16 16:30 08/20/16 21:37 08/21/16 03:21 08/21/16 07:23 Glucose (Fingerstick) 159 mg/dL (70-99) 152 mg/dL (70-99) 83 mg/dL (70-99) Triglycerides Level 136 mg/dL (0-150) Cholesterol Level 109 mg/dL (0-200) LDL Cholesterol, Calculated 40 mg/dL (0-100) VLDL Cholesterol, Calculated 27 mg/dL (0-40) Non-HDL Cholesterol Calculated 67 mg/dL (0-129) HDL Cholesterol 42 mg/dL (40-60) Cholesterol/HDL Ratio 2.6 Medications Current Medications Sodium Chloride 500 ml @ 500 mls/hr 1X ONCE IV Last administered on 12:35; Start 08/20/16 at 12:30; Stop 08/20/16 at 13:29; Status DC Ondansetron HCl (Zofran) 4 mg 1X ONCE IV Last administered on 08/20/16 12:34 ; Start 08/20/16 at 12:30; Stop 08/20/16 at 12:34; Status DC Sodium Chloride 1,000 ml @ 120 mls/hr Q8H20M IV Last administered on 22:16; Start 08/20/16 at 12:42; Stop 08/21/16 at 12:41 Acetaminophen/ Hydrocodone Bitart (Lortab 5/325) 1 tab 1X ONCE PO Last administered on 08/20/16 13:31; Start 08/20/16 at 13:30; Stop 08/20/16 at 13:31 ; Status DC Sodium Chloride 500 ml @ 500 mls/hr 1X ONCE IV Last administered on 13:36; Start 08/20/16 at 13:30; Stop 08/20/16 at 14:29; Status DC Aspirin (Children'S Aspirin) 324 mg 1X ONCE PO Last administered on 08/20/16 14:16; Start 08/20/16 at 14:00; Stop 08/20/16 at 14:03; Status DC Ondansetron HCl (Zofran) 4 mg PRN Q6HRS PRN IV NAUSEA/VOMITING; Start 08/20/16 at 15:30 Aspirin (Children'S Aspirin) 81 mg DAILY PO Last administered on 08/21/16 08: 43; Start 08/20/16 at 16:00 Atorvastatin Calcium (Lipitor) 40 mg HS PO Last administered on 08/20/16 20:05 ; Start 08/20/16 at 21:00 Carvedilol (Coreg) 3.125 mg BIDWMEALS PO Last administered on 08/21/16 08:40; Start 08/20/16 at 17:00 Hydrochlorothiazide (Microzide) 12.5 mg DAILY PO Last administered on 08:39; Start 08/20/16 at 16:00 Metformin HCl (Glucophage) 1,000 mg BIDWMEALS PO Last administered on 08:39; Start 08/20/16 at 17:00 Nitroglycerin (Nitrostat) 0.4 mg PRN Q5MIN PRN SL CHEST PAIN; Start 08/20/16 at 21:00; Stop 08/21/16 at 08:55; Status DC Trazodone HCl (Desyrel) 50 mg HS PO Last administered on 08/20/16 22:11; Start 08/20/16 at 21:00 Insulin Detemir (Levemir) 25 units QHS SQ Last administered on 08/20/16 22:15 ; Start 08/20/16 at 21:00 Sodium Chloride (Normal Saline Flush) 3 ml QSHIFT PRN IV AFTER MEDS AND BLOOD DRAWS; Start 08/20/16 at 16:00 Sodium Chloride 1,000 ml @ 100 mls/hr Q10H IV Last administered on 08/20/16 17:27; Start 08/20/16 at 15:55; Stop 08/21/16 at 08:55; Status DC Clopidogrel Bisulfate (Plavix) 75 mg DAILYWBKFT PO Last administered on 08:39; Start 08/20/16 at 17:00 Labetalol HCl (Normodyne) 10 mg PRN Q10MIN PRN IV HYPERTENSION, SEE COMMENTS; Start 08/20/16 at 16:00; Stop 08/21/16 at 08:55; Status DC Acetaminophen (Tylenol) 650 mg PRN Q6HRS PRN PO FEVER; Start 08/20/16 at 16:00 Acetaminophen (Acetaminophen Supp) 650 mg PRN Q6HRS PRN WA FEVER; Start at 16:00; Stop 08/21/16 at 08:55; Status DC Enoxaparin Sodium (Lovenox 40mg Syringe) 40 mg Q24H SQ Last administered on 17:28; Start 08/20/16 at 16:00; Stop 08/21/16 at 08:55; Status DC Pneumococcal Polyvalent Vaccine (Do NOT chart on this placeholder) 1 each 1X ONCE MC ; Start 08/20/16 at 16:45; Stop 08/20/16 at 16:46; Status UNV Pneumococcal Polyvalent Vaccine (Pneumovax 23) 0.5 ml ONCE ONCE VAX IM Last administered on 08/20/16 20:04; Start 08/20/16 at 19:00; Stop 08/20/16 at 19:01 ; Status DC Tramadol HCl (Ultram) 50 mg PRN BID PRN PO MODERATE PAIN Last administered on 23:34; Start 08/20/16 at 23:00 Ceftriaxone Sodium 1 gm/ Sodium Chloride 50 ml @ 100 mls/hr 1X ONCE IV ; Start 08/21/16 at 09:30; Stop 08/21/16 at 09:59; Status DC Active Scripts Active [Insulin Detemir] 300 UNITS/3 ML Insuln.pen 25 Units SQ HS Reported Trazodone Hcl 50 Mg Tablet 50 Mg PO HS Atorvastatin Calcium 40 Mg Tablet 40 Mg PO HS Aspirin 81 Mg Tab.chew 1 Tab PO DAILY Carvedilol 3.125 Mg Tablet 1 Tab PO BID Nitrostat (Nitroglycerin) 0.4 Mg Tab.subl 1 Tab SL UD Hydrochlorothiazide Capsule (Hydrochlorothiazide) 12.5 Mg Capsule 1 Cap PO DAILY Metformin Hcl 1,000 Mg Tablet 1 Tab PO BID Tramadol Hcl 50 Mg Tablet BID Vitals/I & O Vital Sign - Last 24 Hours 08/20/16 08/20/16 08/20/16 08/20/16 12:16 12:36 12:51 13:06 Temp 98.0 98.0 Pulse 95 83 89 91 Resp 16 20 20 20 B/P (MAP) 179/98 (125) 189/96 (127) 165/93 (117) 194/91 (125) Pulse Ox 96 95 96 97 O2 Delivery Room Air Room Air Room Air Room Air 08/20/16 08/20/16 08/20/16 08/20/16 13:20 13:31 13:36 14:05 Pulse 90 87 88 Resp 20 20 20 18 B/P (MAP) 174/80 (111) 159/76 (103) 161/75 (103) Pulse Ox 96 96 96 95 O2 Delivery Room Air Room Air Room Air Room Air 08/20/16 08/20/16 08/20/16 08/20/16 14:23 15:16 15:30 15:30 Temp 97.8 97.8 97.8 97.8 Pulse 90 86 86 Resp 18 20 18 B/P (MAP) 156/76 (102) 142/89 (106) 142/89 (106) Pulse Ox 97 96 96 O2 Delivery Room Air Room Air Room Air Room Air 08/20/16 08/20/16 08/20/16 08/20/16 16:25 17:28 20:00 21:30 Pulse 86 82 Resp 18 B/P (MAP) 142/89 178/82 (114) Pulse Ox 98 O2 Delivery Room Air Room Air Room Air 08/20/16 08/21/16 08/21/16 08/21/16 23:05 03:05 07:15 08:40 Temp 98.2 99.0 97.9 98.2 99.0 97.9 Pulse 89 87 75 75 Resp 18 18 18 B/P (MAP) 152/92 (112) 123/79 (94) 152/86 (108) 152/86 Pulse Ox 98 97 96 O2 Delivery Room Air Room Air Room Air Intake and Output 08/20/16 08/20/16 08/21/16 15:00 23:00 07:00 Intake Total 1000 ml 300 ml 500 ml Output Total 350 ml 200 ml Balance 1000 ml -50 ml 300 ml AUGUSTUS KRAFT MD Aug 21, 2016 10:04
[2016-08-21 10:50] VITALS: BP 155/93
[2016-08-21 15:20] VITALS: BP 133/76
[2016-08-21] MEDS ORDERED: BENZOCAINE/MENTHOL LOZENGE. PO PRN (18:45)
[2016-08-21 19:47] VITALS: BP 140/97
[2016-08-21] MEDS: ATORVASTATIN CALCIUM 40 MG TABLET. PO SCH (20:30)
[2016-08-21] MEDS: INSULIN DETEMIR 300 UNITS/3 ML INSULN.PEN. SQ SCH (20:36)
[2016-08-21] MEDS: traMADol 50 MG TABLET PO PRN (22:03)
[2016-08-21] MEDS: traZODone 50 MG TABLET. PO SCH (22:03)
[2016-08-22 02:23] VITALS: BP 142/90
[2016-08-22 07:23] VITALS: BP 162/73
--- NOTE | 2016-08-22 08:03 | DISCH ---
DISCHARGE INSTRUCTIONS Condition on Discharge Condition on Discharge: Stable Activity After Discharge Activity Instructions for Disc: No restrictions Diet after Discharge Diet after Discharge: Diabetic No Calorie Level Follow-Up Follow up with: as scheduled AMINAH WALKER MD Aug 22, 2016 08:03
--- NOTE | 2016-08-22 08:11 | PDOC3 ---
Discharge Summary Visit Information Date of Admission: Aug 20, 2016 Date of Discharge: Aug 22, 2016 Final Diagnosis Problems Medical Pr uti, weakness Brief Hospital Course Allergies Allergies Coded Allergies Type Severity Reaction Last Updated Verified paroxetine Allergy Intermediate SEIZURE 05/10/13 Yes meperidine Allergy Mild Anxiety 05/10/13 Yes morphine Allergy Mild Nausea and Vomiting 05/10/13 Yes I S O L A T I O N *CONTACT* Allergy Unknown 03/01/14 Yes Vital Signs Vital Signs Date Time Temp Pulse Resp B/P (MAP) Pulse Ox O2 Delivery O2 Flow Rate FiO2 08/22/16 02:23 98.0 83 18 142/90 (107) 96 Room Air 98.0 Lab Results Laboratory Tests Test 08/20/16 12:21 08/20/16 12:22 08/20/16 13:45 08/20/16 15:57 Glucose (Fingerstick) 221 mg/dL (70-99) White Blood Count 12.4 x10^3/uL (4.0-11.0) Red Blood Count 4.21 x10^6/uL (3.50-5.40) Hemoglobin 13.4 g/dL (12.0-15.5) Hematocrit 41.3 % (36.0-47.0) Mean Corpuscular Volume 98 fL (79-100) Mean Corpuscular Hemoglobin 32 pg (25-35) Mean Corpuscular Hemoglobin Concent 33 g/dL (31-37) Red Cell Distribution Width 12.9 % (11.5-14.5) Platelet Count 213 x10^3/uL (140-400) Neutrophils (%) (Auto) 81 % (31-73) Lymphocytes (%) (Auto) 14 % (24-48) Monocytes (%) (Auto) 4 % (0-9) Eosinophils (%) (Auto) 1 % (0-3) Basophils (%) (Auto) 1 % (0-3) Neutrophils # (Auto) 10.0 x10^3uL (1.8-7.7) Lymphocytes # (Auto) 1.7 x10^3/uL (1.0-4.8) Monocytes # (Auto) 0.5 x10^3/uL (0.0-1.1) Eosinophils # (Auto) 0.1 x10^3/uL (0.0-0.7) Basophils # (Auto) 0.1 x10^3/uL (0.0-0.2) Sodium Level 142 mmol/L (136-145) Potassium Level 4.4 mmol/L (3.5-5.1) Chloride Level 102 mmol/L (98-107) Carbon Dioxide Level 30 mmol/L (21-32) Anion Gap 10 (6-14) Blood Urea Nitrogen 22 mg/dL (7-20) Creatinine 1.0 mg/dL (0.6-1.0) Estimated GFR (Cockcroft-Gault) 56.6 BUN/Creatinine Ratio 22 (6-20) Glucose Level 231 mg/dL (70-99) Calcium Level 8.5 mg/dL (8.5-10.1) Total Bilirubin 0.9 mg/dL (0.2-1.0) Aspartate Amino Transf (AST/SGOT) 21 U/L (15-37) Alanine Aminotransferase (ALT/SGPT) 20 U/L (14-59) Alkaline Phosphatase 84 U/L (46-116) Troponin I Quantitative < 0.017 ng/mL (0.000-0.055) Total Protein 7.1 g/dL (6.4-8.2) Albumin 3.7 g/dL (3.4-5.0) Albumin/Globulin Ratio 1.1 (1.0-1.7) Urine Collection Type Unknown Urine Color Yellow Urine Clarity Hazy Urine pH 6.0 Urine Specific [place] 1.020 Urine Protein Negative mg/dL (NEG-TRACE) Urine Glucose (UA) Negative mg/dL (NEG) Urine Ketones (Stick) Negative mg/dL (NEG) Urine Blood Negative (NEG) Urine Nitrite Negative (NEG) Urine Bilirubin Negative (NEG) Urine Urobilinogen Dipstick 1.0 mg/dL (0.2 mg/dL) Urine Leukocyte Esterase Large (NEG) Urine RBC 0 /HPF (0-2) Urine WBC 20-40 /HPF (0-4) Urine Squamous Epithelial Cells Many /LPF Urine Bacteria Mod /HPF (0-FEW) Urine Mucus Marked /LPF Urine Yeast Present /HPF Nasal Screen MRSA (PCR) Negative (Negative) Test 08/20/16 16:30 08/20/16 21:37 08/21/16 03:21 08/21/16 03:31 Glucose (Fingerstick) 159 mg/dL (70-99) 152 mg/dL (70-99) Triglycerides Level 136 mg/dL (0-150) Cholesterol Level 109 mg/dL (0-200) LDL Cholesterol, Calculated 40 mg/dL (0-100) VLDL Cholesterol, Calculated 27 mg/dL (0-40) Non-HDL Cholesterol Calculated 67 mg/dL (0-129) HDL Cholesterol 42 mg/dL (40-60) Cholesterol/HDL Ratio 2.6 Hemoglobin A1c 8.3 % (4.8-5.6) Test 08/21/16 07:23 08/21/16 12:23 08/21/16 16:48 08/21/16 20:33 Glucose (Fingerstick) 83 mg/dL (70-99) 240 mg/dL (70-99) 158 mg/dL (70-99) 144 mg/dL (70-99) Test 08/22/16 07:13 08/22/16 07:43 Glucose (Fingerstick) 69 mg/dL (70-99) 112 mg/dL (70-99) Laboratory Tests Test 08/21/16 12:23 08/21/16 16:48 08/21/16 20:33 08/22/16 07:13 Glucose (Fingerstick) 240 mg/dL (70-99) 158 mg/dL (70-99) 144 mg/dL (70-99) 69 mg/dL (70-99) Test 08/22/16 07:43 Glucose (Fingerstick) 112 mg/dL (70-99) Brief Hospital Course Ms. Waters is a 60 old [sex] who presented with [ ] weakness, susp stroke, but ct/mri neg for acute- urine infected, cult pending- a1c high 8.3, rest of labb all fine- got rocephin x 2 , better, able to dc home- will take 2 more days septra ds pending culture, erst of meds same Discharge Information Condition at Discharge: Improved Follow Up: Weeks Disposition/Orders: D/C to Home Scheduled Aspirin (Aspirin), 1 TAB PO DAILY, (Reported) Atorvastatin Calcium (Atorvastatin Calcium), 40 MG PO HS, (Reported) Carvedilol (Carvedilol), 1 TAB PO BID, (Reported) Hydrochlorothiazide (Hydrochlorothiazide Capsule ), 1 CAP PO DAILY, (Reported ) Metformin Hcl (Metformin Hcl), 1 TAB PO BID, (Reported) Nitroglycerin (Nitrostat), 1 TAB SL UD, (Reported) Tramadol Hcl (Tramadol Hcl), BID, (Reported) Trazodone Hcl (Trazodone Hcl), 50 MG PO HS, (Reported) [Insulin Detemir], 25 UNITS SQ HS AMINAH WALKER MD Aug 22, 2016 08:11
[2016-08-22] MEDS: CLOPIDOGREL BISULFATE 75 MG TABLET PO SCH (08:22)
[2016-08-22] MEDS: hydroCHLOROthiazide 12.5 MG CAPSULE PO SCH (08:23)
[2016-08-22] MEDS: ASPIRIN CHEWABLE 81 MG TABLET. PO SCH (08:23)
[2016-08-22] MEDS: CARVEDILOL 3.125 MG TABLET. PO SCH (08:23)
[2016-08-22] MEDS: traMADol 50 MG TABLET PO PRN (10:01)
[2016-08-22 11:06] VITALS: BP 148/78
== END 2016-08-22 11:45 | disposition home or self-care (01) | DRG 689 ==
LOC: ER 12:16 → 6 SOUTH 12:44
PROVIDERS: ADMIT Family Medicine; ATTEND Family Medicine
DX: N39.0 Urinary tract infection, site not specified (principal); G92 Toxic encephalopathy; R47.01 Aphasia; I10 Essential (primary) hypertension; J44.9 Chronic obstructive pulmonary disease, unspecified; K21.9 Gastro-esophageal reflux disease without esophagitis; I25.10 Atherosclerotic heart disease of native coronary artery without angina pectoris; M19.90 Unspecified osteoarthritis, unspecified site; E11.9 Type 2 diabetes mellitus without complications; Z82.49 Family history of ischemic heart disease and other diseases of the circulatory system; Z86.73 Personal history of transient ischemic attack (TIA), and cerebral infarction without residual deficits; Z95.1 Presence of aortocoronary bypass graft; Z95.5 Presence of coronary angioplasty implant and graft; Z98.1 Arthrodesis status; Z79.899 Other long term (current) drug therapy; Z79.82 Long term (current) use of aspirin; Z79.1 Long term (current) use of non-steroidal anti-inflammatories (NSAID); Z88.8 Allergy status to other drugs, medicaments and biological substances; Z88.5 Allergy status to narcotic agent; Z79.84 Long term (current) use of oral hypoglycemic drugs; Z87.01 Personal history of pneumonia (recurrent)
CPT/HCPCS: 36415; 70450; 70551; 71010; 80053; 80061; 81001; 82962; 83036; 84484; 85027; 87086; 87641; 90732; 93005; 96361; 96374; A6539; J0696; J1650; J1815; J2405; J7030; J7040; 92610; 99285-25

== ENCOUNTER 2017-05-02 08:46 | Emergency (ER) | payer MEDICARE | END 2017-05-02 09:33 | disposition home or self-care (01) | LOC: ER 08:46 | DX: K02.9 Dental caries, unspecified (principal); I10 Essential (primary) hypertension; E11.9 Type 2 diabetes mellitus without complications; F41.9 Anxiety disorder, unspecified; Z95.1 Presence of aortocoronary bypass graft; Z88.8 Allergy status to other drugs, medicaments and biological substances; Z88.5 Allergy status to narcotic agent | CPT/HCPCS: 99283 ==

== ENCOUNTER → 2018-05-25 | Outpatient (CLI) | payer MEDICARE ==
[2017-05-02 09:17] VITALS: BP 162/94
[~2018-05-25] MED LIST changes: +ASPI325T8 PO; +ATOR40TA59 PO; +CARV12.511; -CARV12.52; +CARV3.1210 PO; -CARV3.122 PO; +CLOP75TA PO; +GLYB-100; -GLYB1TAB14; -HYDR12.53 PO; +HYDR12.575 PO; +INSU100V13 SQ; -METF-620 PO; +METF10007 PO; +MONT10TA6 PO; +OMEP20CA10; -OMEP20CA9; +ONDA4TAB11 PO; +PENI500T PO; +TRAM50TA PO; +TRAZ-118 PO
--- NOTE | 2018-05-25 14:03 | RAD ---
DATE: 05/25/2018 EXAM: MAMMO JULY SCREENING BILATERAL HISTORY: Routine screening COMPARISON: 01/18/2009 This study was interpreted with the benefit of Computerized Aided Detection (CAD). Breast Density: SCATTERED The breast parenchyma shows scattered fibroglandular densities. Breast parenchyma level B. FINDINGS: 2-D and 3-D tomosynthesis imaging was performed in CC and MLO projections. There is an unchanged small cluster of intramammary lymph nodes in the posterolateral aspect of the left breast. No new or enlarging breast densities are seen. Scattered benign type calcifications are evident. No suspicious microcalcifications have developed. IMPRESSION: Stable mammograms without evidence of malignancy. BI-RADS CATEGORY: 2 BENIGN FINDING(S) RECOMMENDED FOLLOW-UP: 12M 12 MONTH FOLLOW-UP PQRS compliance statement: Patient information was entered into a reminder system with a target due date for the next mammogram. Mammography is a sensitive method for finding small breast cancers, but it does not detect them all and is not a substitute for careful clinical examination. A negative mammogram does not negate a clinically suspicious finding and should not result in delay in biopsying a clinically suspicious abnormality. "Our facility is accredited by the [employer] Mammography Program."
== END | disposition home or self-care (01) ==
LOC: MAMMO 10:13
PROVIDERS: ATTEND Family Medicine
DX: Z12.31 Encounter for screening mammogram for malignant neoplasm of breast (principal); R92.8 Other abnormal and inconclusive findings on diagnostic imaging of breast
CPT/HCPCS: 77063; 77067

== ENCOUNTER 2018-07-18 20:00 | Emergency (ER) | payer MEDICARE ==
[~2018-07-18] VITALS: Ht 157.5 cm; Wt 74.8 kg
--- NOTE | 2018-07-18 20:54 | PHYS DOC ---
Past Medical History Past Medical History: CAD, CVA, Diabetes-Type II, Hypertension, Kidney Stone, NM, UTI Additional Past Medical Histor: OSTEOARTHRITIS Past Surgical History: Hysterectomy Additional Past Surgical Histo: CARDIAC STENT PLACEMENT X4, NECK FUSION, Alcohol Use: Occasionally Drug Use: None Adult General Chief Complaint Chief Complaint: MECHANICAL FALL HPI HPI 62-year-old female tripped in the parking lot while she was moving some carts around her car fell and hit her head. She adamantly denies loss of consciousness. She denies headache. She denies any lateralizing neurologic weakness. She was ambulatory at the scene. EMS was called and placed a c-collar. Patient denies any neck pain. Denies any radicular symptoms. She denies any extremity injuries.[] Review of Systems Review of Systems Constitutional: Denies fever or chills [] Eyes: Denies change in visual acuity, redness, or eye pain [] HENT: Trauma per history of present illness[] Respiratory: Denies cough or shortness of breath [] Cardiovascular: No additional information not addressed in HPI [] GI: Denies abdominal pain, nausea, vomiting, bloody stools or diarrhea [] : Denies dysuria or hematuria [] Musculoskeletal: Denies back pain or joint pain [] Integument: Denies rash or skin lesions [] Neurologic: Denies headache, focal weakness or sensory changes [] Endocrine: Denies polyuria or polydipsia [] All other systems were reviewed and found to be within normal limits, except as documented in this note. Allergies Allergies Allergies Coded Allergies Type Severity Reaction Last Updated Verified paroxetine Allergy Intermediate SEIZURE 05/10/13 Yes meperidine Adverse Reaction Mild Anxiety 02/24/17 Yes morphine Adverse Reaction Mild Nausea and Vomiting 02/24/17 Yes acetaminophen Adverse Reaction Unknown 05/02/17 Yes propoxyphene Adverse Reaction Unknown 05/02/17 Yes Physical Exam Physical Exam Constitutional: Well developed, well nourished, no acute distress, non-toxic appearance, extremely talkative. [] HENT: Very small abrasion over the top of a small superficial hematoma to the left forehead there is no underlying crepitus. [] Eyes: PERRL, EOMI, conjunctiva normal, no discharge. [] Neck: Normal range of motion, no midline tenderness, supple, no stridor. [] Cardiovascular:Heart rate regular rhythm, no murmur [] Lungs & Thorax: Bilateral breath sounds clear to auscultation [] Abdomen: Bowel sounds normal, soft, no tenderness, no masses, no pulsatile masses. [] Skin: Small abrasion as described above[] Back: No tenderness, no CVA tenderness. [] Extremities: No tenderness, no cyanosis, no clubbing, ROM intact, no edema. [] Neurologic: Alert and oriented X 3, normal motor function, normal sensory function, no focal deficits noted. [] Psychologic: Very anxious. [] EKG EKG [] Radiology/Procedures Radiology/Procedures [] Course & Med Decision Making Course & Med Decision Making Pertinent Labs and Imaging studies reviewed. (See chart for details) [ED course: Evaluation reveals a 62-year-old female with a very mild/minor head injury. Patient's mother is very nervous about the patient going home and not because of her recent injury but because of her chronic medical illnesses. The mother asked if she could just stay overnight so we could observe her. I explained that she did not meet any criteria for any further testing in the emergency department little on hospitalization. The patient seemed fine with this information however the family member was upset.] Dragon Disclaimer Dragon Disclaimer This electronic medical record was generated, in whole or in part, using a voice recognition dictation system. Departure Departure Impression: Primary Impression: Head contusion Disposition: 01 HOME, SELF-CARE Condition: STABLE Referrals: AMINAH WALKER MD (PCP) Patient Instructions: Head Injury, Adult Additional Instructions: Follow with Dr. Walker next week for recheck. Return to the emergency department with any new or concerning symptoms Problem Qualifiers Primary Impression: Head contusion Encounter type: initial encounter Contusion of head detail: unspecified part of head Qualified Codes: S00.93XA - Contusion of unspecified part of head, initial encounter DOLORES MELENDEZ DO Jul 18, 2018 20:54
[2018-07-18 21:20] VITALS: BP 168/88
[2018-07-18] MEDS ORDERED: TETANUS AND DIPHTHERIA TOX/PF 0.5 ML DISP.SYRIN. VAX IM ONE (21:30)
== END 2018-07-18 21:20 | disposition home or self-care (01) ==
LOC: ER 20:00
DX: S00.93XA Contusion of unspecified part of head, initial encounter (principal); Z88.5 Allergy status to narcotic agent; Z88.6 Allergy status to analgesic agent; Z88.8 Allergy status to other drugs, medicaments and biological substances; E11.9 Type 2 diabetes mellitus without complications; I10 Essential (primary) hypertension; I25.10 Atherosclerotic heart disease of native coronary artery without angina pectoris; Z86.73 Personal history of transient ischemic attack (TIA), and cerebral infarction without residual deficits; I25.2 Old myocardial infarction; Z88.1 Allergy status to other antibiotic agents; W18.09XA Striking against other object with subsequent fall, initial encounter; Y93.89 Activity, other specified; Y92.89 Other specified places as the place of occurrence of the external cause; Y99.8 Other external cause status
CPT/HCPCS: 90471; 90714; 99284

== ENCOUNTER → 2018-07-20 | Outpatient (CLI) | payer MEDICARE ==
[2018-07-18 21:20] VITALS: BP 168/88
--- NOTE | 2018-07-20 17:01 | RAD ---
CT of the head without contrast, 07/20/2018: HISTORY: Fall, injury Comparison is made to a study from 08/20/2016. There are unchanged lucencies in the left temporal and left occipital lobes compatible with encephalomalacia due to old infarcts. There is a small old lacunar infarct along the lateral aspect of the right basal ganglia. The ventricles are within normal limits in size. There is no significant shift of the midline structures. There is no evidence of acute intracranial hemorrhage or mass effect. IMPRESSION: 1. Several old infarcts as described above. 2. No acute intracranial abnormality is detected. CT of the facial bones without contrast, 07/20/2018: Noncontrast scans were obtained with multiplanar reconstructions produced. No acute fracture is identified. The paranasal sinuses are clear. The orbital contents are unremarkable. IMPRESSION: No acute facial bone abnormality is detected. PQRS Compliance Statement: One or more of the following individualized dose reduction techniques were utilized for this examination: 1. Automated exposure control 2. Adjustment of the mA and/or kV according to patient size 3. Use of iterative reconstruction technique Electronically signed by: Noe Corral MD (07/20/2018 4:58 PM) [facility]
== END | disposition home or self-care (01) ==
LOC: CT 10:50
PROVIDERS: ATTEND Family Medicine
DX: S06.0X0D Concussion without loss of consciousness, subsequent encounter (principal); X58.XXXD Exposure to other specified factors, subsequent encounter
CPT/HCPCS: 70450; 70486

== ENCOUNTER → 2018-11-18 | Outpatient (CLI) | payer MEDICARE ==
[~2018-11-18] MED LIST changes: -GLYB-100; +GLYB1TAB18; +MONT10TA49; +MONT10TA49 PO; -MONT10TA6 PO; -MONT10TA9; -NITR0.4T SL; +NITR0.4T24 SL; +OMEP40CA45 PO; -OMEP40CA5 PO; +REGADENOSON 0.4 MG/5 ML DISP.SYRIN. IV ONE
--- NOTE | 2018-11-18 10:54 | CARD ---
MR#: [id number] Date of Study: 11/18/2018 Ordering Physician: MERRY ARNOLD, Referring Physician: MERRY ARNOLD, Tech: Lakesha Hogan APPROVED REPORT EXAM: Two-dimensional and M-mode echocardiogram with Doppler and color Doppler. Other Information Quality : AverageHR: 87bpm INDICATION Cardiac Disease: CAD Surgery/Intervention CABG: Date: 2013 RISK FACTORS Hypertension Hyperlipidemia Diabetes 2D DIMENSIONS Left Atrium(2D)3.7 (1.6-4.0cm)IVSd1.3 (0.7-1.1cm) Aortic Root(2D)2.8 (2.0-3.7cm)LVDd4.0 (3.9-5.9cm) LVOT Diameter2.0 (1.8-2.4cm)PWd1.0 (0.7-1.1cm) LVDs3.3 (2.5-4.0cm)FS (%) 18.4 % SV27.3 mlLVEF(%)38.6 (>50%) Aortic Valve AoV Peak Sergio.112.4cm/sAoV VTI17.8cm AO Peak GR.5.1mmHgLVOT Peak Sergio.78.2cm/s LVOT VTI 12.05cmAO Mean GR.3mmHg PEARL (VMAX)1.07lt3ICU (VTI)2.15cm2 Mitral Valve MV E Nibzhqhm72.2cm/sMV DECEL RILP643mu MV A Vbrkqkcy66.2cm/sMV CRV25wl E/A Ratio1.0MVA (PHT)4.43cm2 TDI E/Lateral E'10.3E/Medial E'14.6 Pulmonary Valve PV Peak Xnuajclc490.2cm/sPV Peak Grad.4mmHg Tricuspid Valve TR P. Mtryksyx339he/sRAP ELOHAGBT0glGy TR Peak Gr.79ypRuANCY25lkUx Pulmonary Vein S1 Daeseryu45.6cm/sD2 Idsefqns63.8cm/s PVa nmcgraed860lqrh LEFT VENTRICLE The left ventricle is normal size. There is mild concentric left ventricular hypertrophy. The left ve ntricular systolic function is normal. The Ejection Fraction is 50-55%. There is normal LV segmental wall motion. The left ventricular diastolic function and filling is normal for age. RIGHT VENTRICLE The right ventricle is normal size. There is normal right ventricular wall thickness. The right ventr icular systolic function is normal. ATRIA The left atrium size is normal. The right atrium size is normal. The interatrial septum is intact wit h no evidence for an atrial septal defect or patent foramen ovale as noted on 2-D or Doppler imaging. AORTIC VALVE The aortic valve is thickened but opens well. Doppler and Color Flow revealed no significant aortic r egurgitation. There is no significant aortic valvular stenosis. MITRAL VALVE The mitral valve is normal in structure and function. There is no evidence of mitral valve prolapse. There is no mitral valve stenosis. Doppler and Color Flow revealed no mitral valve regurgitation note d. TRICUSPID VALVE The tricuspid valve is normal in structure and function. Doppler and Color Flow revealed trace tricus pid regurgitation with an estimated PAP of 28 mmHg. There is no tricuspid valve stenosis. PULMONIC VALVE The pulmonic valve is not well visualized. Doppler and Color Flow revealed trace pulmonic valvular re gurgitation. GREAT VESSELS The aortic root is normal in size. The IVC is normal in size and collapses >50% with inspiration. PERICARDIAL EFFUSION There is no evidence of significant pericardial effusion. Critical Notification Critical Value: No <Conclusion> The left ventricular systolic function is normal. The Ejection Fraction is 50-55%. There is normal LV segmental wall motion. Trace tricuspid regurgitation with an estimated PAP of 28 mmHg. There is no evidence of significant pericardial effusion. Signed by : Merry Arnold, Electronically Approved : 11/18/2018 10:54:00
--- NOTE | 2018-11-18 13:35 | RAD ---
MR#: [id number] Date of Study: 11/18/2018 Ordering Physician: MERRY BEDOYA, Referring Physician: DORI FALCON Tech: RT Reji Adams) (N) APPROVED REPORT Test Type: Pharmacological Stress Nurse/Tech: Smiley Valenzuela R.N. Test Indications: cad, Cardiac History: cabg, stents in 2018, mi, dm, htn Medications: see ehr Medical History: see ehr Resting ECG: SR with ST depression Resting Heart Rate: 84 bpm Resting Blood Pressure: 173/97mmHg Pretest Chest Pain: No chest pain Nurse/Tech Notes lungs cta, heart tones regular Consent: The procedure was explained to the patient in lay terms. Informed consent was witnessed. Riley eout was entered into [employer]. History and Stress Test performed by RT Monik UrbinaR) (N) Pharm. Details Pharmacologic stress testing was performed using 0.4mg per 5ml of regadenoson given intravenously ove r 7-10 seconds. Stress Symptoms Nausea, pt reported cp 4-5/10 that resolved with recovery, pt very hypertensive during test. pt took PO meds while still in recovery. and will monitor before leaving. POST EXERCISE Reason for Termination: Infusion complete Target HR: No Max HR: 127 bpm Max Blood Pressure: 205/127mmHg Chest Pain: Yes. see above Arrhythmia: Yes. PVCS noted intermittantly INTERPRETATION Stress EKG Conclusion: The resting EKG shows a sinus rhythm with nonspecific ST-T wave changes. The stress EKG shows further nonspecific EKG changes and the abnormal leads. Borderline EKG response with exertion that is not clearly diagnostic of ischemia. Imaging Protocol IMAGE PROTOCOL: Rest Tc-99m/stress Tc-99m 1 day Rest: Stress: Viability: Radiopharm.Tc99m WiujygintQc15t Sestamibi Aeri81zGm 33mCi Duration 13min. 13min. Img Date 11/18/2018 11/18/2018 Inj-Img Qzeg51udb. 60min. Rest Admin Site:IV - Left AntecubitalAdministrator:RT Reji Adams)(N) Stress Admin Site: IV - Left AntecubitalAdministrator: Vicki Koch RT (R)(N) STRESS DATA End Diast. Vol.52.0mlLVEDV index BSA29.0ml End Syst. Vol.11.0mlLVESV index BSA6.0ml Myocardial Mass92.0gEject. Eztvfyca93.0% Stress Scores Regional WT1.00Summed WT6.00 Regional WM0.00Summed WM1.00 LV Perfusion The stress scans showed no significant defects. The rest scans showed no significant defects. Nuclear imaging shows no reversible ischemia or infarct. Wall Motion Normal left ventricular systolic function with no regional wall motion abnormalities and an ejection fraction of greater than 70%. LV Perf. Quant 17 Seg. SSS0.00 17 Seg. SRS0.00 17 Seg. SDS0.00 Stress Defect Extent (% LAD)0.00Rest Defect Extent (% LAD)1.30Rev. Defect Extent (% LAD)0.00 Stress Defect Extent (% LCX) 0.00Rest Defect Extent (% LCX)0.00Rev. Defect Extent (% LCX)0.00 Stress Defect Extent (% RCA)0.00Rest Defect Extent (% RCA)0.00Rev. Defect Extent (% RCA)0.00 Stress Defect Extent (% SANG)0.00Rest Defect Extent (% SANG)1.30Rev. Defect Extent (% SANG)0.00 Conclusion 1. Baseline abnormal EKG with mild further EKG changes with stress that are not diagnostic of ischemi a. 2. Hypertensive blood pressure response to stress. 3. Nuclear imaging shows no reversible ischemia or infarct. 4. Normal left ventricular systolic function with an ejection fraction of greater than 70%. 5. Moderately low risk Lexiscan nuclear stress test. Signed by : Laron Robledo MD Electronically Approved : 11/18/2018 13:34:31
== END | disposition home or self-care (01) ==
LOC: NM 08:29
PROVIDERS: ATTEND Internal Medicine Cardiovascular Disease
DX: I25.10 Atherosclerotic heart disease of native coronary artery without angina pectoris (principal); I51.7 Cardiomegaly
CPT/HCPCS: 78452; 93017; 93306; A9500; J2785

== ENCOUNTER 2018-12-04 17:32 | Inpatient (IN) | payer MEDICARE ==
[~2018-12-04] VITALS: Ht 157.5 cm; Wt 80.7 kg
[~2018-12-04 17:32] MED LIST changes: -REGADENOSON 0.4 MG/5 ML DISP.SYRIN. IV ONE
[2018-12-04] MEDS ORDERED: IV NORMAL SALINE 1000ML BAG 1,000 ML IV SCH (17:59)
[2018-12-04] MEDS ORDERED: DIPHTH,PERTUSS(ACELL),TET TOX 0.5 ML DISP.SYRIN. VAX IM ONE (18:00)
[2018-12-04 18:27] LABS: BASO % 0 % (0-3); EOS # 0.1 x10^3/uL (0.0-0.7); EOS % 1 % (0-3); HEMATOCRIT 40.7 % (36.0-47.0); HEMOGLOBIN 13.6 g/dL (12.0-15.5); LYMPH # 1.3 x10^3/uL (1.0-4.8); LYMPH % 16 % (24-48); MEAN CORPUSCULAR HEMOGLOBIN 33 pg (25-35); MEAN CORPUSCULAR HGB CONC 34 g/dL (31-37); MEAN CORPUSCULAR VOLUME 98 fL (79-100); MONO # 0.4 x10^3/uL (0.0-1.1); MONO % 5 % (0-9); NEUT # 6.2 x10^3/uL (1.8-7.7); NEUT % 78 % (31-73); PLATELET COUNT 233 x10^3/uL (140-400); RED BLOOD COUNT 4.17 x10^6/uL (3.50-5.40); RED CELL DISTRIBUTION WIDTH 12.8 % (11.5-14.5)
[2018-12-04 18:30] LABS: BILIRUBIN,URINE NEGATIVE (NEG); CLARITY,URINE CLEAR; COLOR,URINE YELLOW; NITRITE,URINE NEGATIVE (NEG); PROTEIN,URINE NEGATIVE (NEG-TRACE); UROBILINOGEN,URINE 0.2 mg/dL (0.2 mg/dL)
[2018-12-04 18:32] LABS: PROTHROMBIN TIME PATIENT 13.6 SEC (11.7-14.0)
[2018-12-04 18:33] LABS: CALCIUM 7.9 mg/dL (8.5-10.1); CREATININE 1.2 mg/dL (0.6-1.0); GFR 45.4; POTASSIUM 3.7 mmol/L (3.5-5.1)
[2018-12-04 18:35] LABS: HYALINE CASTS, URINE MODERATE /HPF; SQUAMOUS EPITHELIAL CELL,UR FEW /LPF
[2018-12-04 18:36] LABS: BACTERIA,URINE 0 /HPF (0-FEW); WBC,URINE 0 /HPF (0-4)
[2018-12-04 18:46] LABS: ALBUMIN 3.6 g/dL (3.4-5.0); TOTAL BILIRUBIN 0.6 mg/dL (0.2-1.0); TOTAL PROTEIN 7.1 g/dL (6.4-8.2)
--- NOTE | 2018-12-04 19:04 | RAD ---
Exam: CT head, maxillofacial and cervical spine INDICATION: Fall TECHNIQUE: Sequential axial images through the head , maxillofacial and cervical spine were obtained without the administration of IV contrast. Comparisons: None FINDINGS: Head: No focal parenchymal lesion or hemorrhage is identified. There is no midline shift or sulcal effacement. Stable hypodensity within the left parietal lobe and left posterior superior parietal lobe are again noted. No acute vascular territory infarction is identified. Nobles-white distinction is preserved. The ventricular system is within normal limits without compression hydrocephalus. The basal cisterns are well maintained. Face: Extra cranial soft tissue contusion along the left frontal lobe. Globes and intraorbital contents are normal. The visualized portions of the paranasal sinuses and mastoid air cells are well-pneumatized. No acute fractures. Cervical spine: Anterior cervical fusion hardware from C5 to C7 with collateral interbody screws and interconnecting vertical stabilization plate. Osseous interbody fusion is noted at the surgical levels. There is straightening of cervical spine which may be positional. Vertebral body heights are well-maintained. Fracture to the cervical spine is not identified. There is multilevel spondylotic change in the cervical spine greatest at C4-C5 with degenerative disc disease and mild bilateral facet arthropathy. Visual is paraspinal soft tissues are unremarkable. IMPRESSION: 1. Extracranial soft tissue contusion along the left frontal region. No underlying osseous abnormality. 2. No acute intracranial abnormality. 3. Negative CT C-spine for acute traumatic injury. Exposure: One or more of the following in the visualized dose reduction techniques were utilized for this examination: 1. Automated exposure control 2. Adjustment of the MA and/or KV according to patient size Use of iterative of reconstructive technique Electronically signed by: Davion Munson MD (12/04/2018 7:01 PM) [facility]
--- NOTE | 2018-12-04 19:06 | RAD ---
CT scan of the thoracic and lumbar spine without contrast 12/04/2018 CLINICAL HISTORY: Mid and low back pain post fall. TECHNIQUE: Unenhanced, contiguous, 0.625 mm axial sections were obtained through the thoracic and lumbar vertebrae. 3 mm reconstructed sagittal, axial and coronal images were obtained. One or more of the following individualized dose reduction techniques were utilized for this study: 1. Automated exposure control. 2. Adjustment of the mA and/or kV according to patient size. 3. Use of iterative reconstruction technique. FINDINGS: Sagittal and coronal reconstructed images demonstrate very mild S-shaped curvature of the thoracolumbar spine. Degenerative changes are seen involving the thoracic and throughout the lumbar disc spaces consisting of varying degrees of disc space narrowing, vertebral endplate sclerosis and mild to moderate anterior vertebral body osteophyte formation. Atherosclerotic calcification of the thoracic and abdominal aorta and their branches is noted. No fracture or subluxation of the thoracic or lumbar vertebrae is seen. Degenerative changes are seen involving the facet joints throughout the mid and lower thoracic disc spaces. No definite area of significant central spinal canal or neural foraminal stenosis is seen. The changes of degenerative disc disease are seen involving the lower lumbar disc spaces. These consist of mild to moderate generalized disc bulges and degenerative changes involving the facet joints along with mild to moderate ligamentum flavum hypertrophy. These findings do not result in definite significant central spinal canal stenosis. Mild to moderate bilateral neural foraminal stenosis is seen at L4-5. Mild to moderate left neural foraminal stenosis is seen at L5-S1. IMPRESSION: No fracture or subluxation of the thoracic or lumbar vertebrae is seen. Electronically signed by: Derick Franks MD (12/04/2018 7:03 PM) [facility]
[2018-12-04] MEDS: IV NORMAL SALINE 1000ML BAG 1,000 ML IV SCH (20:45)
[2018-12-04] MEDS ORDERED: ONDANSETRON PF 4 MG/2 ML VIAL. IV PRN (20:45)
[2018-12-04 21:19] VITALS: BP 150/93
--- NOTE | 2018-12-04 21:25 | NUR ---
Pt arrived to unit via cart accompanied by MACHINE DEBURRER. Pt able to scoot from cart to bed with little difficulty. Able to follow simple commands and answer simple questions - responses greatly delayed. If offered more than one option of things to do at one time - pt seems unable to process - will be no response and then eyes stare off into space. Pupils equal, sluggishly reactive. NIH attempted - unable to complete due to pt being unable to complete tasks - stated did know how to read but when asked to read the words on the stroke scale - pt unable to vocalize. Involuntary random facial movements noted as well. 0010: Pt put employee communications specialist light to use bedpan. Upon entering room RN noted pt to be more alert - still with delayed verbal responses and inability to make decisions. Will continue to monitor pt status closely.
--- NOTE | 2018-12-04 21:46 | PHYS DOC ---
Past Medical History Past Medical History: CAD, CVA, Diabetes-Type II, Hypertension, Kidney Stone, MD, UTI Additional Past Medical Histor: OSTEOARTHRITIS (JORDAN ARANA APRN) Past Surgical History: Hysterectomy Additional Past Surgical Histo: CARDIAC STENT PLACEMENT X4, NECK FUSION, (JORDAN ARANA APRN) Alcohol Use: Occasionally Drug Use: None (JORDAN ARANA APRN) Adult General Chief Complaint Chief Complaint: ALTERED MENTAL STATUS HPI HPI Patient is a 63 year old female with history of CAD, MD, hypertension,CVA, who presents to the ED today via EMS after being found laying on the ground face forward at the [employer] parking lot. Patient is currently confused and does not know anything regarding what happened. She is awake. She is able to carry on conversations but they do not make sense. (JORDAN ARANA APRN) Review of Systems Review of Systems Constitutional: Unable to assess Eyes: Unable to assess HENT: Unable to assess Respiratory: Unable to assess Cardiovascular: Unable to assess GI: Unable to assess : Unable to assess Musculoskeletal: Unable to assess Integument: Bruising noted on the left forearm, left leg. Neurologic: Reports fall, altered mental status. LULÚ more information All other systems were reviewed and found to be within normal limits, except as documented in this note. (JORDAN ARANA APRN) Current Medications Current Medications Current Medications Medications (Trade) Dose Ordered Sig/Nga Start Time Stop Time Status Last Admin Dose Admin Diphtheria/ Tetanus/Acell Pertussis (Boostrix) 0.5 ml ONCE ONCE 12/04/18 18:00 12/04/18 18:03 DC 12/04/18 20:21 0.5 ML Sodium Chloride 1,000 ml @ 1,500 mls/hr Q40M 12/04/18 17:59 12/04/18 18:58 DC 12/04/18 19:18 1,500 MLS/HR (BRISA JOSHI DO) Allergies Allergies Allergies Coded Allergies Type Severity Reaction Last Updated Verified paroxetine Allergy Intermediate SEIZURE 05/10/13 Yes meperidine Adverse Reaction Mild Anxiety 02/24/17 Yes morphine Adverse Reaction Mild Nausea and Vomiting 02/24/17 Yes (BRISA JOSHI DO) Physical Exam Physical Exam Constitutional: Well developed, well nourished, no acute distress, non-toxic appearance. [] HENT: Normocephalic, bilateral external ears normal, oropharynx moist, no oral exudates, nose normal. [] Eyes: PERRLA, EOMI, conjunctiva normal, no discharge. [] Neck: Normal range of motion, no tenderness, supple, no stridor. [] Cardiovascular:Heart rate regular rhythm, no murmur [] Lungs & Thorax: Bilateral breath sounds clear to auscultation [] Abdomen: Bowel sounds normal, soft, no tenderness, no masses, no pulsatile masses. [] Skin: Warm, dry, no erythema, no rash. [] Back: No tenderness, no CVA tenderness. [] Extremities: Bruising noted to the left proximal forearm, left leg. Neurologic: Bruising noted on the left forehead and nasal bridge. Alert and oriented X 1, normal motor function, normal sensory function, no focal deficits noted. Cranial nerves II through XII intact Psychologic: Flat affect (MUTUNGA,JORDAN ECOSYSTEM ECOLOGY PROFESSOR) Current Patient Data Vital Signs Vital Signs Date Time Temp Pulse Resp B/P (MAP) Pulse Ox O2 Delivery O2 Flow Rate FiO2 12/04/18 19:30 102 20 97 12/04/18 17:32 96.1 181/94 (123) Room Air 96.1 (JOSHI,BRISA R DO) Lab Values Laboratory Tests Test 12/04/18 18:15 White Blood Count 8.0 x10^3/uL (4.0-11.0) Red Blood Count 4.17 x10^6/uL (3.50-5.40) Hemoglobin 13.6 g/dL (12.0-15.5) Hematocrit 40.7 % (36.0-47.0) Mean Corpuscular Volume 98 fL (79-100) Mean Corpuscular Hemoglobin 33 pg (25-35) Mean Corpuscular Hemoglobin Concent 34 g/dL (31-37) Red Cell Distribution Width 12.8 % (11.5-14.5) Platelet Count 233 x10^3/uL (140-400) Neutrophils (%) (Auto) 78 % (31-73) H Lymphocytes (%) (Auto) 16 % (24-48) L Monocytes (%) (Auto) 5 % (0-9) Eosinophils (%) (Auto) 1 % (0-3) Basophils (%) (Auto) 0 % (0-3) Neutrophils # (Auto) 6.2 x10^3/uL (1.8-7.7) Lymphocytes # (Auto) 1.3 x10^3/uL (1.0-4.8) Monocytes # (Auto) 0.4 x10^3/uL (0.0-1.1) Eosinophils # (Auto) 0.1 x10^3/uL (0.0-0.7) Basophils # (Auto) 0.0 x10^3/uL (0.0-0.2) Prothrombin Time 13.6 SEC (11.7-14.0) Prothrombin Time INR 1.1 (0.8-1.1) Activated Partial Thromboplast Time 30 SEC (24-38) Urine Collection Type Unknown Urine Color Yellow Urine Clarity Clear Urine pH 6.0 Urine Specific [place] 1.010 Urine Protein Negative mg/dL (NEG-TRACE) Urine Glucose (UA) Negative mg/dL (NEG) Urine Ketones (Stick) Negative mg/dL (NEG) Urine Blood Large (NEG) Urine Nitrite Negative (NEG) Urine Bilirubin Negative (NEG) Urine Urobilinogen Dipstick 0.2 mg/dL (0.2 mg/dL) Urine Leukocyte Esterase Negative (NEG) Urine RBC 6-10 /HPF (0-2) Urine WBC 0 /HPF (0-4) Urine Squamous Epithelial Cells Few /LPF Urine Bacteria 0 /HPF (0-FEW) Urine Hyaline Casts Moderate /HPF Urine Mucus Slight /LPF Sodium Level 140 mmol/L (136-145) Potassium Level 3.7 mmol/L (3.5-5.1) Chloride Level 97 mmol/L (98-107) L Carbon Dioxide Level 31 mmol/L (21-32) Anion Gap 12 (6-14) Blood Urea Nitrogen 26 mg/dL (7-20) H Creatinine 1.2 mg/dL (0.6-1.0) H Estimated GFR (Cockcroft-Gault) 45.4 BUN/Creatinine Ratio 22 (6-20) H Glucose Level 258 mg/dL (70-99) H Lactic Acid Level 6.8 mmol/L (0.4-2.0) *H Calcium Level 7.9 mg/dL (8.5-10.1) L Total Bilirubin 0.6 mg/dL (0.2-1.0) Aspartate Amino Transferase (AST) 14 U/L (15-37) L Alanine Aminotransferase (ALT) 16 U/L (14-59) Alkaline Phosphatase 68 U/L (46-116) Creatine Kinase 210 U/L (26-192) H Creatine Kinase MB (Mass) 4.1 ng/mL (0.0-3.6) H Creatine Kinase MB Relative Index 2.0 % (0-4) Total Protein 7.1 g/dL (6.4-8.2) Albumin 3.6 g/dL (3.4-5.0) Albumin/Globulin Ratio 1.0 (1.0-1.7) Amylase Level 154 U/L (25-115) H Lipase 1680 U/L (73-393) H Procalcitonin < 0.10 ng/mL (0.00-0.10) Laboratory Tests 12/04/18 18:15 Laboratory Tests 12/04/18 18:15 (BRISA JOSHI DO) EKG EKG [address] Joshi sinus rhythm heart rate 96 no STEMI[] (JORDAN ARANA APRN) Radiology/Procedures Radiology/Procedures []ROCEDURE: CT HEAD AND CERVICAL SPINE WO Exam: CT head, maxillofacial and cervical spine INDICATION: Fall TECHNIQUE: Sequential axial images through the head , maxillofacial and cervical spine were obtained without the administration of IV contrast. Comparisons: None FINDINGS: Head: No focal parenchymal lesion or hemorrhage is identified. There is no midline shift or sulcal effacement. Stable hypodensity within the left parietal lobe and left posterior superior parietal lobe are again noted. No acute vascular territory infarction is identified. Nobles-white distinction is preserved. The ventricular system is within normal limits without compression hydrocephalus. The basal cisterns are well maintained. Face: Extra cranial soft tissue contusion along the left frontal lobe. Globes and intraorbital contents are normal. The visualized portions of the paranasal sinuses and mastoid air cells are well-pneumatized. No acute fractures. Cervical spine: Anterior cervical fusion hardware from C5 to C7 with collateral interbody screws and interconnecting vertical stabilization plate. Osseous interbody fusion is noted at the surgical levels. There is straightening of cervical spine which may be positional. Vertebral body heights are well-maintained. Fracture to the cervical spine is not identified. There is multilevel spondylotic change in the cervical spine greatest at C4-C5 with degenerative disc disease and mild bilateral facet arthropathy. Visual is paraspinal soft tissues are unremarkable. IMPRESSION: 1. Extracranial soft tissue contusion along the left frontal region. No underlying osseous abnormality. 2. No acute intracranial abnormality. 3. Negative CT C-spine for acute traumatic injury. Exposure: One or more of the following in the visualized dose reduction techniques were utilized for this examination: 1. Automated exposure control 2. Adjustment of the MA and/or KV according to patient size Use of iterative of reconstructive technique Electronically signed by: Davion Olmstead MD (12/04/2018 7:01 PM) [facility] [id number] DICTATED and SIGNED BY: DAVION OLMSTEAD MD DATE: 12/04/181900 (JORDAN ARANA APRN) Course & Med Decision Making Course & Med Decision Making Pertinent Labs and Imaging studies reviewed. (See chart for details) This is a 63-year-old female patient who presents to the ED today to be evaluated after being found lying on the ground at [employer] parking lot, patient is currently altered. Alert to self only. Has bruises on her face left forearm and left lower extremity. CT of the head, cervical spine, maxillofacial, thoracic and lumbar spine are negative for any acute findings. X-rays of bilateral hip including pelvis and right knee as well as left forearm are negative for any acute findings. CBC with no acute findings, CMP with glucose of 258, anion gap is normal, creatinine 1.2, BUN 26. Lipase 1680, denies any abdominal pain. Lactic 6.8, CK 210, urine analysis is negative for infection, troponin is normal. Patient denies any previous history of seizures. Spoke with Dr. Giang who reported this patient is usually alert and oriented 4 and able to carry normal conversations. She accepted patient for admission Spoke to -neurology who requested MRI for tomorrow morning (JORDAN ARANA APRN) Dragon Disclaimer Dragon Disclaimer This electronic medical record was generated, in whole or in part, using a voice recognition dictation system. (JORDAN ARANA APRN) Departure Departure Impression: Primary Impression: Fall Additional Impressions: Altered mental state Elevated lipase Hyperglycemia Disposition: ADMITTED INPATIENT Condition: STABLE Referrals: AMINAH WALKER MD (PCP) Attending Signature Attending Signature I have reviewed the PA/MASSAGE THERAPIST's note and plan of care. I was available for consultation as needed during the patient's visit in the emergency department. I agree with the clinical impression, plan, and disposition. (BRISA JOSHI DO) Problem Qualifiers Primary Impression: Fall Encounter type: initial encounter Qualified Codes: W19.XXXA - Unspecified fall, initial encounter Additional Impressions: Altered mental state Altered mental status type: unspecified Qualified Codes: R41.82 - Altered mental status, unspecified JORDAN ARANA APRN Dec 04, 2018 21:46 BRISA JOSHI DO Dec 05, 2018 05:33
[2018-12-04] MEDS: IV DEXTROSE 5%-LACT RINGERS 1,000 ML IV SCH (23:00)
--- NOTE | 2018-12-04 23:52 | RAD ---
AP and lateral left forearm radiographs 12/04/2018 CLINICAL HISTORY: Fall with injury to the left forearm. AP and lateral digital radiographs of the left forearm were obtained. No fracture or dislocation of the left radius or ulna is seen. Moderate degenerative changes are seen involving the left elbow joint. Moderate to severe degenerative changes are seen involving the first carpal metacarpal joint. IMPRESSION: No fracture or dislocation of the left forearm is seen. Electronically signed by: Derick Franks MD (12/04/2018 11:49 PM) [employer]
--- NOTE | 2018-12-04 23:53 | RAD ---
Three-view right knee radiographs 12/04/2018 CLINICAL HISTORY: Fall with injury to the right knee. AP, lateral oblique digital radiographs of the right knee were obtained. No fracture or dislocation of the right knee is seen. Moderate to severe degenerative changes are seen involving all 3 compartments of the right knee, particularly the medial and patellofemoral compartments. There is no radiographic evidence of a joint effusion. IMPRESSION: No fracture or dislocation of the right knee is seen. Electronically signed by: Derick Franks MD (12/04/2018 11:50 PM) [facility]
--- NOTE | 2018-12-04 23:55 | RAD ---
AP and lateral radiographs of both hips to include an AP radiograph of the pelvis 12/04/2018 CLINICAL HISTORY: Fall with pelvic and hip pain. AP and frog-leg lateral digital radiographs of the pelvis to include both hips were obtained. No pelvic bone fracture is seen. No fracture or dislocation of either hip is noted. Mild to moderate degenerative changes are seen involving both hips. Mild degenerative changes are seen involving both SI joints. Surgical clips overlie the proximal left thigh. IMPRESSION: No fracture or dislocation is seen. Electronically signed by: Derick Franks MD (12/04/2018 11:52 PM) [facility]
[2018-12-05 05:26] VITALS: BP 147/82
[2018-12-05 07:00] VITALS: BP 157/85
[2018-12-05] MEDS: CLOPIDOGREL BISULFATE 75 MG TABLET PO SCH (08:00)
[2018-12-05] MEDS: metFORMIN 500 MG TABLET PO SCH ×2 (08:00→17:18)
[2018-12-05] MEDS: IV DEXTROSE 5%-LACT RINGERS 1,000 ML IV SCH (09:00)
[2018-12-05] MEDS: ASPIRIN 325 MG TABLET PO SCH (09:00)
[2018-12-05] MEDS ORDERED: hydroCHLOROthiazide 12.5 MG CAPSULE PO SCH (09:00)
[2018-12-05] MEDS: IV NORMAL SALINE 1000ML BAG 1,000 ML IV SCH (09:27)
--- NOTE | 2018-12-05 10:56 | PDOC ---
Provider Note Provider Note [facility], hit head but no loc/amnesia- ct head and rest all ok, denies APODACA but speech and thinking slow, nonfocal exam- knows date/location- doubt seizure, syncope- mri pending ,will follow- dictated AMINAH WALKER MD Dec 05, 2018 10:56
[2018-12-05 11:00] VITALS: BP 163/96
[2018-12-05] MEDS ORDERED: NITROGLYCERIN SUBLINGUAL 0.4 MG BOTTLE OF 25. SL PRN (11:00)
[2018-12-05] MEDS ORDERED: ONDANSETRON ODT 4 MG TAB.RAPDIS. PO PRN (11:00)
--- NOTE | 2018-12-05 12:24 | HP ---
ADMIT DATE: CHIEF COMPLAINT: Found down in a parking lot. HISTORY OF PRESENT ILLNESS: A 63-year-old white female who is a known diabetic with history of coronary disease and prior bypass surgery was apparently shopping at [employer], walked out of the supermarket and was found face down in the parking lot. There was no witnessed fall or seizure activity or syncope. The patient states that she recalls falling down, does not recall any symptoms prior to that event. She denies loss of consciousness and denies any headache at this time or other particular symptoms. CT scan of the head as well as neck, thoracic and lumbar spine and x-rays of her hip and forearm were all unremarkable. She was admitted overnight, has had no further episodes of any kind. PAST MEDICAL HISTORY: Well documented. Meds are in the chart. Diabetes is well controlled with low-dose insulin and metformin. She has had no further cardiovascular events since her bypass surgery and sees a edge inker heels regularly. SOCIAL HISTORY: She is , nonsmoker, nondrinker, retired, not physically active. FAMILY HISTORY: Unremarkable. REVIEW OF SYSTEMS: No other known problems. OBJECTIVE: ENT: She has bruising and mild swelling of the left forehead. There are no lacerations. Pupils are round and reactive. EOMs are full. Pharynx, teeth appear to be unremarkable. NECK: No carotid bruits, nodes or thyroid enlargement. LUNGS: Clear, without tachypnea. CARDIOVASCULAR: Regular rate. No murmur or tachycardia. ABDOMEN: Benign. EXTREMITIES: She has some tenderness without much swelling or bruising of the left dorsal wrist. There is some scraping of the left forearm, elbow appears to be normal. Lower extremities appear to be normal. GENITALIA AND RECTAL: Deferred. NEUROLOGIC: She is aware of location and month and my name. When asked the year, she stares, was not able to really answer, but answers questions appropriately. Mentation appears to be slow and speech is a little bit halting, but not truly aphasic. She moves all extremities, arms and legs well. There are no tremors seen or any obvious cerebellar dysfunction. Gait was not tested. Sensation appears to be intact in all extremities. ASSESSMENT: Appears to be a fall with closed head injury and bruising of the forehead. Doubt this was a seizure or any overt kind of arrhythmias. There was no amnestic component or clear loss of consciousness, but the mildly confused state could be more of concussive symptoms. PLAN: MRI of the head is ordered. We will continue to monitor her for now and let her eat and drink and continue most of her home meds. Neurologic consultation is pending as required for the MRI report as well. AMINAH WALKER MD DR: KAREN/nts JOB#: [id number] / [id number]
[2018-12-05] MEDS: CARVEDILOL 3.125 MG TABLET. PO SCH ×2 (12:40→17:18)
--- NOTE | 2018-12-05 12:43 | NUR ---
Bedside Swallow evaluation completed. Please refer to full report in intervention section for additional information. Impressions: Min oropharyngeal dysphagia w/ mastication inefficiency r/t poor dentition and edentulous upper status. Pt's slow responding at times, decreased willingness to sit upright at 90* and her poor dental status increase risk of aspiration currently and pt would benefit from a modified diet. Recommendations: Dysphagia II diet w/ thin liquids. ST f/u for assessment of swallow safety . General swallow precautions (including sitting upright, slow rate, being alert and awake, etc) were discussed at length w/ pt and posted in room. Also d/w RN.
[2018-12-05 15:00] VITALS: BP 138/67
--- NOTE | 2018-12-05 15:55 | RAD ---
BRAIN W/O CONTRAST History: History of CVA. Altered mental status. Technique: Multiplanar, multi sequential MR imaging was performed of the brain without contrast. Comparison: December 04, 2018. Findings: No acute infarct. No intracranial hemorrhage. No mass effect. No hydrocephalus. Chronic left frontal parietal infarcts. Chronic left occipital infarct. Small chronic right cerebellar infarcts. Mild additional foci of T2/FLAIR hyperintensity within the hemispheric white matter, most often due to chronic microvascular ischemia. Punctate gradient hypointensity within the left cerebellum, likely related to prior microhemorrhage. Mild brain parenchymal volume loss. Imaged orbits are unremarkable. Imaged paranasal sinuses are clear. Minimal left mastoid fluid. Impression: 1. No acute intracranial abnormality. 2. Chronic left-sided cerebral and small right cerebellar infarcts. Electronically signed by: Júnior Akhtar DO (12/05/2018 3:52 PM) [facility]
[2018-12-05 19:30] VITALS: BP 149/86
[2018-12-05] MEDS ORDERED: INSULIN GLARGINE SYRINGE. SQ SCH (21:00)
[2018-12-05] MEDS: ATORVASTATIN CALCIUM 40 MG TABLET. PO SCH (21:07)
[2018-12-05] MEDS: traMADol 50 MG TABLET PO PRN (21:46)
[2018-12-05 23:30] VITALS: BP 150/84
--- NOTE | 2018-12-06 00:25 | CONS ---
DATE OF CONSULTATION: REFERRING PHYSICIAN: Dr. Ramírez Andrews REASON FOR CONSULTATION: Syncope and a fall. HISTORY OF PRESENT ILLNESS: The patient is a 63-year-old woman who was shopping at [employer]. She had actually gotten out of her car and was heading into the store and had not yet made it to the store. She fell face down before she entered the store. She does not know why she fell. She did not recall feeling off balance, lightheaded or dizzy. She reports recalling the impact. She does not recall how she got to the hospital, but states she remembers being in the Emergency Room and being rolled up to her current room on the 6th floor. I do not have the paramedics record to know what her blood pressure or glucose may have been as they evaluated her. She does have a history of a stroke in 2014, but feels there was not much residual. She has coronary artery disease and has undergone stent placement. She has hypertension and diabetes. She has never had a known seizure. She apparently was not postictal with this fall. She lives alone and is independent with all her activities of daily living. She does feel there has been some cognitive change which is longstanding. PAST MEDICAL HISTORY: 1. Coronary artery disease. 2. History of stroke 2014, left hemisphere for which she did receive intravenous TPA. 3. Type 2 diabetes. 4. Hypertension. 5. History of kidney stone. 6. History of myocardial infarction. 7. History of urinary tract infection. 8. Osteoarthritis. 9. Hysterectomy. 10. Cardiac stents placed. 11. History of neck fusion. ALLERGIES: ACETAMINOPHEN, MEPERIDINE, MORPHINE, PAROXETINE AND PROPOXYPHENE. MEDICINES PRIOR TO ADMISSION: Aspirin 325 mg, atorvastatin 40 mg, carvedilol 3.125 mg twice per day, clopidogrel 75 mg, hydrochlorothiazide, insulin, metformin 1000 mg twice per day, montelukast 10 mg, Zofran 4 mg as needed, penicillin, Tramadol 50 mg every 6 hours as needed, and trazodone 50 mg at night. FAMILY HISTORY: Unremarkable. SOCIAL HISTORY: She has been a since 01/2018. She does not smoke tobacco, drink alcohol or use recreational drugs. She is retired. REVIEW OF SYSTEMS: She has some headache and left wrist pain where she fell. She has had no loss of vision or hearing. She feels her cognition has not been as sharp. She has been able to chew and swallow. She does not have shortness of breath, chest or abdominal pain. She does have bone and joint pain. There has been no fever or rash. She has not had any gastrointestinal or genitourinary complaint. She uses a cane with walking. She does not complain of swelling. She does not have excessive bruising or bleeding. She is diabetic. PHYSICAL EXAMINATION: VITAL SIGNS: The blood pressure was 163/96, pulse 95, respirations 16, temperature 98.6 degrees Fahrenheit. Oximetry was 96% on room air. Her weight was 80.7 kilograms, height 62 inches and a calculated body mass index of 32.6. GENERAL: She was alert, awake and cooperative. Speech was fluent and clear. Her fund of recent and remote knowledge was limited. Attention and concentration seemed slightly impaired. She had difficulty grasping concepts at times during the examination. She was well oriented to place, month and year. She appeared well groomed and well nourished. NEUROLOGIC: Examination of the cranial nerves revealed visual wagner were full to confrontation. Extraocular movements were intact. The eyes were conjugate. Pursuit movements were smooth and saccadic eye movements were without dysmetria. Pupils were 3 mm and reacted. Funduscopic exam did not reveal papilledema, exudate or hemorrhage. Facial sensation was intact. The muscles of mastication and facial expression were powerful symmetrically. Hearing was intact to finger rub. The palate arched symmetrically and the tongue was midline with full range of motion. Sternocleidomastoid and trapezius were powerful. Muscle bulk and tone was normal. There was no arm drift or leg drift. Power was full and symmetric in the upper and lower extremities. Reflexes 2/4 and symmetric in the upper and lower extremities. Toes were downgoing. Coordination testing with vuixul-dm-vgzl, vezn-nj-abde, fine motor and rapid alternating movements was well performed. Sensory exam was intact to pain, light touch, proprioception, graphesthesia, cold, thermal and vibration. There was no extinction to double simultaneous stimulation. Gait was not testable at this time. NECK: Auscultation of the carotid arteries did not reveal a bruit. HEART: Rhythm is regular, without a murmur. EXTREMITIES: Peripheral pulses were symmetric in the hands and feet. There was no edema or cyanosis. REVIEW OF LABORATORY DATA: CBC from 12/04/2018 revealed a normal white blood cell count, hemoglobin, hematocrit and platelet count. Chemistries from 12/04/2018 revealed normal sodium and potassium, but chloride was low at 97 and CO2 was normal. BUN was elevated at 26 and creatinine to 1.2 with a GFR that calculated at 45.4. Glucose was elevated to 258. Calcium was low at 7.9. Liver enzymes were not elevated. Total protein and albumin were normal. Amylase was elevated at 154 and lipase to 1680. Lactic acid was elevated to 5.2 at 21:25 and 6.8 at 18:15. Ammonia level was not elevated. Procalcitonin was not elevated. CPK was slightly elevated at 210. PT/INR was 1.1 and PTT was 30. Urinalysis revealed a large amount of blood, 0.2 urobilinogen, 6-10 red cells, a few squamous epithelial cells and moderate hyaline casts. CT scan was performed of the head and cervical spine as well as thoracic and lumbar spine. The head did reveal extracranial soft tissue contusion along the frontal lobe. There was no fracture. There was no acute intracranial process. Cervical spine did not have a fracture. Soft tissues were unremarkable. The CT scan of the thoracic spine revealed no fracture or subluxation of the thoracic or lumbar vertebrae. She also had a CT of the maxillofacial region. This did not reveal any fractures in the face. She had an x-ray of the left forearm as this was tender and where she fell, but there was no fracture seen. IMPRESSION: The patient is a 63-year-old woman who fell outside at [employer]. The cause of the fall is not clear. She states she remembers the impact and somebody helping her up. She was not down for very long. She, however, does not remember the time between getting up and how she got to the hospital. I am concerned there may have been seizure, although, not a definite postictal phase was present. She did have elevated lactic acid, which could be consistent with seizure. She has had prior stroke, which may be an irritable focus. Certainly, I have no definite evidence that she had seizure. RECOMMENDATIONS: She will undergo an MRI brain to see if there is an acute intracranial process. We can obtain an EEG as an outpatient to better evaluate for an underlying irritable focus. I am not inclined to initiate an anticonvulsant at this time. I appreciate being involved in her care. MIKI AYALA MD DR: HEBERT/diony JOB#: [id number] / [id number] AUGUSTUS Price MD, FERILYN MD
[2018-12-06 03:23] VITALS: BP 155/85
[2018-12-06 07:00] VITALS: BP 167/80
[2018-12-06] MEDS: metFORMIN 500 MG TABLET PO SCH ×2 (10:29→16:43)
[2018-12-06] MEDS: CLOPIDOGREL BISULFATE 75 MG TABLET PO SCH (10:29)
[2018-12-06] MEDS: ASPIRIN 325 MG TABLET PO SCH (10:29)
[2018-12-06] MEDS: CARVEDILOL 3.125 MG TABLET. PO SCH ×2 (10:29→16:44)
[2018-12-06 11:00] VITALS: BP 157/83
[2018-12-06] MEDS: traMADol 50 MG TABLET PO PRN ×2 (11:06→20:21)
--- NOTE | 2018-12-06 13:31 | EKG ---
[facility] [address] [place] [address] Test Date: 2018-12-04 Test Time: 18:58:53 Pat Name: FERDINAND GUPTA Department: Room: 3 1 Gender: F Product Development Specialist: : [id number] Requested By: JORDAN ARANA Order Number: [id number] Reading MD: Camron Coto MD Measurements Intervals [place] Rate: 96 P: 47 [place]: 146 QRS: 66 QRSD: 82 T: 56 QT: 358 QTc: 459 Interpretive Statements SINUS RHYTHM Electronically Signed On 12-21-2018 8:48:46 LAW ENFORCEMENT DIRECTOR by Camron Coto MD
--- NOTE | 2018-12-06 13:42 | PDOC ---
Provider Note Provider Note more alert today, exam nonfocal- glucose up so dc fluid, add lantus- eeg in am, then dc if ok AMINAH WALKER MD Dec 06, 2018 13:42
[2018-12-06] MEDS ORDERED: INSULIN GLARGINE SYRINGE. SQ ONE (14:00)
[2018-12-06 15:00] VITALS: BP 156/66
[2018-12-06] MEDS ORDERED: DEXTROSE 50% 25 GM / 50ML DISP.SYRIN. IV PRN (19:45)
[2018-12-06 19:48] VITALS: BP 153/71
[2018-12-06] MEDS: ATORVASTATIN CALCIUM 40 MG TABLET. PO SCH (20:21)
[2018-12-06] MEDS ORDERED: INSULIN GLARGINE SYRINGE. SQ SCH (21:00)
[2018-12-06 23:00] VITALS: BP 147/75
--- NOTE | 2018-12-06 23:03 | NUR ---
Patient transferred from 673 to room 578 at this time. Patient was transferred via bed with the assist of 2 medical staff members. This RN will assume care of this patient as of now.
[2018-12-07 03:03] VITALS: BP 147/83
[2018-12-07 07:00] VITALS: BP 165/78
[2018-12-07] MEDS ORDERED: ASPIRIN CHEWABLE 81 MG TABLET. PO SCH (08:00)
[2018-12-07] MEDS: CLOPIDOGREL BISULFATE 75 MG TABLET PO SCH (08:02)
[2018-12-07] MEDS: metFORMIN 500 MG TABLET PO SCH (08:03)
[2018-12-07] MEDS: CARVEDILOL 3.125 MG TABLET. PO SCH (08:05)
--- NOTE | 2018-12-07 08:28 | PDOC ---
Provider Note Provider Note [id number] AMINAH WALKER MD Dec 07, 2018 08:28
[2018-12-07] MEDS: traMADol 50 MG TABLET PO PRN (08:44)
--- NOTE | 2018-12-07 09:07 | DS ---
DATE OF DISCHARGE: 12/07/2018 HOSPITAL SUMMARY: A 63-year-old white female had a fall in a parking lot of grocery store, does not recall if she tripped or had any events that occurred. She has full recollection of the fall, but does not remember while coming to the hospital. Lactic acid was elevated on admission, it came down quickly and CBC and chemistry profile were unremarkable. Lipase was high at 1680. Procalcitonin was normal. CBC and urinalysis unremarkable except for some blood present in the urine. Imaging studies of the hip and thoracic spine and head CT, lumbar spine CT, all normal as were forearm x-rays and MRI of the brain with previous strokes seen in the brain but no new acute injuries. EEG is pending at this time. She was monitored, had no arrhythmias or any further events. Neurologically, she is intact and appears to be able to be followed as an outpatient at this point. FINAL DIAGNOSES: 1. Fall. 2. Closed head injury with mild concussion syndrome. 3. Lactic acidosis, etiology undetermined. OPERATIONS, PROCEDURES, COMPLICATIONS: None. CONSULTATIONS: Dr. Saravia. DISPOSITION: All meds remain the same at home. No new medications. EEG results pending, although this does not seem like certainly a typical seizure, as there was no witnessed seizure activity or postictal state. AMINAH WALKER MD DR: KAREN/diony JOB#: [id number] / [id number]
--- NOTE | 2018-12-07 09:41 | EEG ---
DATE OF SERVICE: 12/07/2018 OBJECTIVE: The patient is a 63-year-old female with prolonged syncope, rule out seizure. DESCRIPTION: This is a digital study. Electrodes are placed according to the international 10-20 system. Bipolar and referential montages are available. Activation procedures typically include hyperventilation and intermittent photic stimulation. INTERPRETATION: The waking background consists of 9-10 Hz, 50-100 microvolt activity, symmetrically distributed over parietooccipital regions and reactive to eye opening. There is quite a bit of muscle artifact and the computer spike detection software picks up on that. No abnormal epileptic activity is observed on examination of each of the computer-generated spike detections. Sleep is not achieved. Hyperventilation and intermittent photic stimulation are noncontributory. IMPRESSION: This electroencephalogram with the patient awake only is within normal limits. There is no focal, paroxysmal, or epileptiform activity. Thank you for letting us help with the patient's care. AUGUSTUS KRAFT MD DR: JORY/diony JOB#: [id number] / [id number] LINETTE Bolden MD
[2018-12-07 10:49] VITALS: BP 160/72
--- NOTE | 2018-12-07 11:24 | NUR ---
Discharge Note: [facility] Discharge instructions and discharge home medications reviewed with Patient and a copy given. All questions have been answered and understanding verbalized. The following instructions and handouts were given: AMS Discontinued lines and drains: Peripheral IV intact. Patient discharged to Home or Self Care with Self via Wheelchair
--- NOTE | 2018-12-07 12:21 | PDOC ---
PROGRESS NOTES Assessment Problems Medical Problems: (1) Altered mental state Status: Acute (2) Hyperglycemia Status: Acute Fall, doubt seizure, but did have prolonged confusion. Workup, brain MRI and EEG, is negative Past history of hypertension, type II diabetes, hyperlipidemia, guest esophageal reflux disease, coronary artery disease, asthma, hepatitis B, hiatal hernia, spastic colon, history of stroke Plan Okay for discharge Follow with Neurology as needed. Subjective No complaints, wants to go home Objective Vital Signs Date Time Temp Pulse Resp B/P (MAP) Pulse Ox O2 Delivery O2 Flow Rate FiO2 12/07/18 10:49 97.8 82 18 160/72 (101) 95 Room Air 97.8 Intake and Output 12/07/18 07:00 Intake Total 700 ml Balance 700 ml Intake Oral 700 ml # Voids 4 PHYSICAL EXAM Alert. Oriented to time, place and person. PERRL. EOMI. CN: no focal findings. Muscle tone: normal. Muscle strength: 5/5 DTR: 2+ Plantar reflex: flexor Gait: normal. Sensory exam: no abnormal findings. No cerebellar signs elicited. Review of Relevant I have reviewed the following items elma (where applicable) has been applied. Labs Laboratory Tests Test 12/05/18 12:41 12/05/18 17:14 12/05/18 21:39 12/06/18 00:50 Glucose (Fingerstick) 229 mg/dL (70-99) 301 mg/dL (70-99) 260 mg/dL (70-99) 205 mg/dL (70-99) Test 12/06/18 06:13 12/06/18 11:29 12/06/18 18:03 12/06/18 20:20 Glucose (Fingerstick) 157 mg/dL (70-99) 304 mg/dL (70-99) 219 mg/dL (70-99) 223 mg/dL (70-99) Test 12/07/18 08:00 Glucose (Fingerstick) 93 mg/dL (70-99) Laboratory Tests Test 12/06/18 18:03 12/06/18 20:20 12/07/18 08:00 Glucose (Fingerstick) 219 mg/dL (70-99) 223 mg/dL (70-99) 93 mg/dL (70-99) Microbiology 12/04/18 Blood Culture - Preliminary, Resulted NO GROWTH AFTER 2 DAYS Medications Current Medications Sodium Chloride 1,000 ml @ 1,500 mls/hr Q40M IV Last administered on 12/04/18at 19:18; Start 12/04/18 at 17:59; Stop 12/04/18 at 18:58; Status DC Diphtheria/ Tetanus/Acell Pertussis (Boostrix) 0.5 ml ONCE ONCE VAX IM Last administered on 12/04/18at 20:21; Start 12/04/18 at 18:00; Stop 12/04/18 at 18:03; Status DC Ondansetron HCl (Zofran) 4 mg PRN Q8HRS PRN IV NAUSEA/VOMITING 1ST CHOICE; Start 12/04/18 at 20:45; Stop 12/05/18 at 20:44; Status DC Sodium Chloride 1,000 ml @ 75 mls/hr [id number] IV ; Start 12/04/18 at 20:45; Stop 12/05/18 at 10:55; Status DC Dextrose/Lactated Ringer's 1,000 ml @ 100 mls/hr Q10H IV Last administered on 12/05/18at 09:00; Start 12/04/18 at 23:00; Stop 12/05/18 at 17:24; Status DC Aspirin (Gonzalo Aspirin) 325 mg DAILY PO Last administered on 12/06/18at 10:29; Start 12/05/18 at 09:00; Stop 12/06/18 at 13:42; Status DC Atorvastatin Calcium (Lipitor) 40 mg HS PO Last administered on 12/06/18at 20:21; Start 12/05/18 at 21:00; Stop 12/07/18 at 11:26; Status DC Carvedilol (Coreg) 3.125 mg BIDWMEALS PO Last administered on 12/07/18at 08:05; Start 12/05/18 at 08:00; Stop 12/07/18 at 11:26; Status DC Clopidogrel Bisulfate (Plavix) 75 mg DAILYWBKFT PO Last administered on 12/07/18at 08:02; Start 12/05/18 at 08:00; Stop 12/07/18 at 11:26; Status DC Hydrochlorothiazide (Microzide) 12.5 mg DAILY PO ; Start 12/05/18 at 09:00; Stop 12/05/18 at 10:55; Status DC Insulin Glargine (Lantus Syringe) 15 unit QHS SQ Last administered on at 21:39; Start 12/05/18 at 21:00; Stop 12/06/18 at 13:38; Status DC Metformin HCl (Glucophage) 1,000 mg BIDWMEALS PO Last administered on 12/07/18at 08:03; Start 12/05/18 at 08:00; Stop 12/07/18 at 11:26; Status DC Nitroglycerin (Nitrostat) 0.4 mg PRN Q2HRS PRN SL CHEST PAIN; Start 12/05/18 at 11:00; Stop 12/07/18 at 11:26; Status DC Tramadol HCl (Ultram) 50 mg PRN Q6HRS PRN PO PAIN Last administered on 12/07/18at 08:44; Start 12/05/18 at 11:00; Stop 12/07/18 at 11:26; Status DC Ondansetron HCl (Zofran Odt) 4 mg PRN Q8HRS PRN PO NAUSEA/VOMITING Last administered on 12/06/18at 22:14; Start 12/05/18 at 11:00; Stop 12/07/18 at 11:26; Status DC Insulin Glargine (Lantus Syringe) 30 unit QHS SQ Last administered on 12/06/18at 20:24; Start 12/06/18 at 21:00; Stop 12/07/18 at 11:26; Status DC Insulin Glargine (Lantus Syringe) 15 unit 1X ONCE SQ Last administered on 12/06/18at 15:15; Start 12/06/18 at 14:00; Stop 12/06/18 at 14:01; Status DC Aspirin (Children'S Aspirin) 81 mg DAILYWBKFT PO Last administered on 12/07/18at 08:04; Start 12/07/18 at 08:00; Stop 12/07/18 at 11:26; Status DC Dextrose (Dextrose 50%-Water Syringe) 12.5 gm PRN Q15MIN PRN IV SEE COMMENTS; Start 12/06/18 at 19:45; Stop 12/07/18 at 11:26; Status DC Active Scripts Active Tramadol Hcl 50 Mg Tablet 50 Mg PO Q6HRS PRN Clopidogrel (Clopidogrel Bisulfate) 75 Mg Tablet 75 Mg PO DAILYWBKFT 30 Days Reported Aspirin 325 Mg Tablet 325 Mg PO DAILY Ondansetron Hcl 4 Mg Tablet 1 Tab PO PRN Q8HRS PRN Singulair Tablet (Montelukast Sodium) 10 Mg Tablet 10 Mg PO HS Levemir (Insulin Detemir) 100 Unit/1 Ml Vial 15 Unit SQ QHS Trazodone Hcl 50 Mg Tablet 50 Mg PO PRN QHS Atorvastatin Calcium 40 Mg Tablet 40 Mg PO HS Carvedilol (Carvedilol) 3.125 Mg Tablet 1 Tab PO BID Nitrostat (Nitroglycerin) 0.4 Mg Tab.subl 1 Tab SL UD Hydrochlorothiazide Capsule (Hydrochlorothiazide) 12.5 Mg Capsule 1 Cap PO DAILY Metformin Hcl 1,000 Mg Tablet 1 Tab PO BID Tramadol Hcl 50 Mg Tablet TID Vitals/I & O Vital Sign - Last 24 Hours 12/06/18 12/06/18 12/06/18 12/06/18 15:00 16:44 19:48 20:21 Temp 96.5 98.5 96.5 98.5 Pulse 81 81 85 Resp 16 20 18 B/P (MAP) 156/66 (96) 156/66 153/71 (98) Pulse Ox 98 98 98 O2 Delivery Room Air Room Air Room Air 12/06/18 12/06/18 12/06/18 12/07/18 21:21 23:00 23:08 03:03 Temp 98.0 98.3 98.0 98.3 Pulse 79 77 Resp 19 20 18 B/P (MAP) 147/75 (99) 147/83 (104) Pulse Ox 98 96 97 O2 Delivery Room Air Room Air Room Air Room Air 12/07/18 12/07/18 12/07/18 07:00 08:05 10:49 Temp 97.8 97.8 97.8 97.8 Pulse 85 84 82 Resp 16 18 B/P (MAP) 165/78 (107) 174/88 160/72 (101) Pulse Ox 95 95 O2 Delivery Room Air Room Air Intake and Output 12/06/18 12/06/18 12/07/18 15:00 23:00 07:00 Intake Total 270 ml 430 ml Balance 270 ml 430 ml Images BRAIN W/O CONTRAST History: History of CVA. Altered mental status. Technique: Multiplanar, multi sequential MR imaging was performed of the brain without contrast. Comparison: December 04, 2018. Findings: No acute infarct. No intracranial hemorrhage. No mass effect. No hydrocephalus. Chronic left frontal parietal infarcts. Chronic left occipital infarct. Small chronic right cerebellar infarcts. Mild additional foci of T2/FLAIR hyperintensity within the hemispheric white matter, most often due to chronic microvascular ischemia. Punctate gradient hypointensity within the left cerebellum, likely related to prior microhemorrhage. Mild brain parenchymal volume loss. Imaged orbits are unremarkable. Imaged paranasal sinuses are clear. Minimal left mastoid fluid. Impression: 1. No acute intracranial abnormality. 2. Chronic left-sided cerebral and small right cerebellar infarcts. AUGUSTUS KRAFT MD Dec 07, 2018 12:21
== END 2018-12-07 11:26 | disposition home or self-care (01) | DRG 914 ==
LOC: ER 17:32 → 6 SOUTH 20:12 → 5 SOUTH 12-06 22:48
PROVIDERS: ADMIT Family Medicine; ATTEND Family Medicine
DX: S09.90XA Unspecified injury of head, initial encounter (principal); E87.2 Acidosis; F07.81 Postconcussional syndrome; I10 Essential (primary) hypertension; I25.10 Atherosclerotic heart disease of native coronary artery without angina pectoris; M19.90 Unspecified osteoarthritis, unspecified site; E11.65 Type 2 diabetes mellitus with hyperglycemia; E78.5 Hyperlipidemia, unspecified; K21.9 Gastro-esophageal reflux disease without esophagitis; J45.909 Unspecified asthma, uncomplicated; K58.9 Irritable bowel syndrome, unspecified; W19.XXXA Unspecified fall, initial encounter; Y93.89 Activity, other specified; Y92.89 Other specified places as the place of occurrence of the external cause; Y99.8 Other external cause status; I25.2 Old myocardial infarction; Z87.442 Personal history of urinary calculi; Z87.440 Personal history of urinary (tract) infections; Z90.710 Acquired absence of both cervix and uterus; Z95.5 Presence of coronary angioplasty implant and graft; Z98.1 Arthrodesis status; Z88.5 Allergy status to narcotic agent; Z88.8 Allergy status to other drugs, medicaments and biological substances; Z86.73 Personal history of transient ischemic attack (TIA), and cerebral infarction without residual deficits
CPT/HCPCS: 36415; 70450; 70486; 70551; 72125; 72128; 72131; 73090; 73521; 73562; 80053; 81001; 82140; 82150; 82553; 82962; 83605; 83690; 84145; 84484; 85025; 85610; 85730; 87040; 90471; 90715; 93005; 95816; 96360; 96361; J1815; J7030; Q0162; 92610; 97530; 97535; 99285-25; G0378

== ENCOUNTER → 2020-08-23 | Outpatient (CLI) | payer MEDICARE ==
[~2020-08-23] MED LIST changes: -ALPR0.5T5; +ALPR0.5T9; -LISI-338; +LISI-517; -OMEP20CA10; +OMEP20CA16; -OMEP40CA45 PO; +OMEP40CA7 PO; +ONDA-84 PO; -ONDA4TAB11 PO
--- NOTE | 2020-08-23 16:21 | RAD ---
EXAM: Left knee, 3 views. HISTORY: Medial pain. COMPARISON: None. FINDINGS: 3 views of the left knee are obtained. There is patellofemoral compartment joint space narr owing and subchondral sclerosis. There is moderate tricompartment marginal spurring. There is medial and lateral compartment chondrocalcinosis. There is a small joint effusion. There is a vascular clip within the medial knee soft tissues. IMPRESSION: 1. Moderate patellofemoral compartment and mild medial and lateral compartment osteoarthritis of the left knee with chondrocalcinosis and small joint effusion. 2. No acute osseous finding. Electronically signed by: Vicki Steven MD (08/23/2020 4:19 PM) [id number]
== END ==
LOC: RAD 15:19
PROVIDERS: ATTEND Family Medicine
DX: M17.12 Unilateral primary osteoarthritis, left knee (principal); M25.462 Effusion, left knee; M11.262 Other chondrocalcinosis, left knee; M79.89 Other specified soft tissue disorders; M25.862 Other specified joint disorders, left knee
CPT/HCPCS: 73562